=== PATIENT | male | born 1950 | race Caucasian/White ===

== ENCOUNTER → 2016-12-14 | Outpatient (CLI) | payer OTHER ==
[~2016-12-14] MED LIST: AGM875 PO; ASPI81TA28 PO; CMD4 PO; CRS10 PO; GLUCTAB7 PO; METO50TA16 PO; MULT-506 PO; NIAC1TAB59 PO; OMEG10007 PO; OXYC-57 PO
[2016-12-14 09:34] LABS: BASO % 0.6 %; BASO ABS # 0.03 K/uL (0-0.2); COMPLETE YES; EOS % 3.5 %; HEMATOCRIT 49.7 % (42-52); LYMPH % 31.1 %; LYMPH ABS # 1.68 K/uL (1.2-3.4); MEAN CORPUSCULAR HEMOGLOBIN 34.9 pg (25-34); MEAN CORPUSCULAR HGB CONC 35.2 g/dl (32-36); MEAN PLATELET VOLUME 10.2 fL (7.4-10.4); MONO % 11.9 %; NEUT % 52.9 %; PLATELET COUNT 161 K/uL (130-400); RED BLOOD COUNT 5.02 M/uL (4.7-6.1)
[2016-12-14 09:48] LABS: ALT/SGPT 36 U/L (12-78); BLOOD UREA NITROGEN 16 mg/dl (7-18); BUN/CREATININE RATIO 11.7 (10-20); CALCIUM 9.3 mg/dl (8.5-10.1); CARBON DIOXIDE 25 mmol/L (21-32); CHLORIDE 108 mmol/L (98-107); CHOLESTEROL 113 mg/dl (0-200); GLUCOSE 101 mg/dl (70-99); POTASSIUM 4.2 mmol/L (3.5-5.1); SODIUM 139 mmol/L (136-145); TRIGLYCERIDES 111 mg/dl (0-150); VERY LOW DENSITY LIPOPROT CALC 22 mg/dl
[2016-12-14 09:53] LABS: ESTIMATED AVERAGE GLUCOSE 114 mg/dl; HA1C FLAG Normal (Normal)
[2016-12-14 09:57] LABS: ALB/GLOB RATIO 1.1 (0.9-2); ALKALINE PHOSPHATASE 75 U/L (45-117); AST/SGOT 28 U/L (15-37); CHOLESTEROL/HDL RATIO 2.4; HDL CHOLESTEROL 47 mg/dl; LDL CHOLESTEROL CALCULATED 44 mg/dl; RHEUMATOID FACTOR < 10.0 U/mL (0-15); THYROID STIMULATING HORMONE 0.912 uIu/ml (0.300-4.500)
== END | disposition home or self-care (01) ==
LOC: C.LAB 07:57
PROVIDERS: ATTEND Internal Medicine
DX: Z00.00 Encounter for general adult medical examination without abnormal findings (principal); I25.10 Atherosclerotic heart disease of native coronary artery without angina pectoris; R21 Rash and other nonspecific skin eruption; E78.5 Hyperlipidemia, unspecified; I10 Essential (primary) hypertension; M25.50 Pain in unspecified joint; M79.1 Myalgia; R73.01 Impaired fasting glucose

== ENCOUNTER 2017-02-15 23:41 | Emergency (ER) | payer OTHER ==
[~2017-02-15] VITALS: Ht 177.8 cm; Wt 90.0 kg
[~2017-02-15 23:41] MED LIST changes: -ASPI81TA28 PO; -GLUCTAB7 PO
[2017-02-15 23:53] VITALS: TEMP 36.8; Ht 177.8 cm; Wt 90.0 kg
[2017-02-16] MEDS ORDERED: GLUCTAB7 PO (00:24)
[2017-02-16] MEDS ORDERED: ASPI81TA28 PO (00:25)
--- NOTE | 2017-02-16 00:29 | EMERGENCY ROOM VISIT NOTE ---
History Report prepared by Susan: Rosemarie Cheek Under the Supervision of: Dr. Kymberly Mcbride D.O. First contact with patient: 00:03 Chief Complaint: SWELLING TO EXTREMITY Stated Complaint: S.P RT SHOULDER SURGERY, LOWER EXTREMITY SWELLING History of Present Illness The patient is a 66 year old male who presents to the Emergency Room with complaints of sudden swollen feet and calves beginning 2 hours prior to arrival. The patient states that one week ago he had right shoulder surgery, and that he had this same swelling in his feet and calves 2 days after. He denies being on his feet more than usual. The patient states that he takes a baby aspirin, metoprolol, and lisinopril. Pt denies headache, change in vision, fevers, chest pain, shortness of breath, nausea, vomiting, diarrhea, pain with urination, and melena. Source of History: patient Onset: 2 hours prior to arrival Position: foot (bilateral), other (bilateral calves) Quality: other (swelling) Timing: other (sudden) Associated Symptoms: No fevers, No headache, No chest pain, No SOB, No nausea, No vomiting, No melena, No diarrhea, No urinary symptoms Review of Systems See HPI for pertinent positives & negatives. A total of 10 systems reviewed and were otherwise negative. Past Medical & Surgical Medical Problems: (1) Heart disease (2) Varicose vein of leg Family History FHx: cancer Hypertension Social History Smoking Status: Former Smoker Marital Status: single Occupation Status: unemployed Current/Historical Medications Scheduled Aspirin (Aspirin Ec), 81 MG PO DAILY Fish Oil (Dunnegan-3), 1 CAP PO TID Nfnqaiqlxiq-Aofieoaamfd-Rqs C- (Glucosamine Chondroitin), 1 TAB PO DAILY Metoprolol Tartrate (Lopressor) (Lopressor), 75 MG PO BID Multivitamin (Multivitamin), 1 TAB PO DAILY Allergies Coded Allergies: Latex1 -Allergic Contact Dermititis (Verified Allergy, Mild, RASH, 02/16/17 ) Adhesives (Verified Allergy, Unknown, rash, 02/16/17) Physical Exam Vital Signs Date Time Temp Pulse Resp B/P (MAP) Pulse Ox O2 Delivery O2 Flow Rate FiO2 02/16/17 03:19 76 18 133/81 95 02/16/17 01:31 80 20 117/80 98 Room Air 02/15/17 23:53 36.8 77 20 130/79 96 Room Air Physical Exam GENERAL: alert, well appearing, well nourished, no distress, non-toxic EYE EXAM: normal conjunctiva, PERRL and EOM's grossly intact OROPHARYNX: no exudate, no erythema, lips, buccal mucosa, and tongue normal and mucous membranes are moist NECK: supple, no nuchal rigidity, no adenopathy, non-tender LUNGS: Clear to auscultation. Normal chest wall mechanics HEART: no murmurs, S1 normal and S2 normal ABDOMEN: abdomen soft, non-tender, normo-active bowel sounds, no masses, no rebound or guarding. BACK: Back is symmetrical on inspection and there is no deformity, no midline tenderness, no CVA tenderness. SKIN: no rashes and no bruising UPPER EXTREMITIES: upper extremities are grossly normal. Right upper extremity in post-operative protective sling. LOWER EXTREMITIES: 1+ bilateral lower edema. Nml ROM, nml pulses. NEURO EXAM: Normal sensorium, cranial nerves II-XII [grossly] intact, normal speech, no [gross] weakness of arms, no [gross] weakness of legs. Gross sensation intact. Medical Decision & Procedures ER Provider Diagnostic Interpretation: US venous b/l lower extremities: No deep venous thrombosis identified in either lower extremity. Slow flow reportedly noted in the left popliteal vein, but the vein compresses normally. Pulsatile venous waveform noted in both common femoral veins. This may indicate elevated right heart pressures/right heart failure. Radiologist: Jorge A Salamanca M.D. Laboratory Results 02/16/17 00:45 Red Blood Count 4.71, Mean Corpuscular Volume 95.1, Mean Corpuscular Hemoglobin 32.5, Mean Corpuscular Hemoglobin Concent 34.2, Mean Platelet Volume 9.4, Neutrophils (%) (Auto) 51.9, Lymphocytes (%) (Auto) 32.5, Monocytes (%) (Auto) 9.3, Eosinophils (%) (Auto) 5.5, Basophils (%) (Auto) 0.6, Neutrophils # (Auto) 2.64, Lymphocytes # (Auto) 1.65, Monocytes # (Auto) 0.47, Eosinophils # (Auto) 0.28, Basophils # (Auto) 0.03 02/16/17 00:45 Test 02/16/17 00:45 02/16/17 00:54 White Blood Count 5.08 K/uL (4.8-10.8) Red Blood Count 4.71 M/uL (4.7-6.1) Hemoglobin 15.3 g/dL (14.0-18.0) Hematocrit 44.8 % (42-52) Mean Corpuscular Volume 95.1 fL (80-100) Mean Corpuscular Hemoglobin 32.5 pg (25-34) Mean Corpuscular Hemoglobin Concent 34.2 g/dl (32-36) Platelet Count 209 K/uL (130-400) Mean Platelet Volume 9.4 fL (7.4-10.4) Neutrophils (%) (Auto) 51.9 % Lymphocytes (%) (Auto) 32.5 % Monocytes (%) (Auto) 9.3 % Eosinophils (%) (Auto) 5.5 % Basophils (%) (Auto) 0.6 % Neutrophils # (Auto) 2.64 K/uL (1.4-6.5) Lymphocytes # (Auto) 1.65 K/uL (1.2-3.4) Monocytes # (Auto) 0.47 K/uL (0.11-0.59) Eosinophils # (Auto) 0.28 K/uL (0-0.5) Basophils # (Auto) 0.03 K/uL (0-0.2) RDW Standard Deviation 39.1 fL (36.4-46.3) RDW Coefficient of Variation 11.2 % (11.5-14.5) Immature Granulocyte % (Auto) 0.2 % Immature Granulocyte # (Auto) 0.01 K/uL (0.00-0.02) Prothrombin Time 10.7 SECONDS (9.0-12.0) Prothromb Time International Ratio 1.0 (0.9-1.1) Anion Gap 5.0 mmol/L (3-11) Est Creatinine Clear Calc Drug Dose 64.8 ml/min Estimated GFR () 66.8 Estimated GFR (Non- 57.7 BUN/Creatinine Ratio 16.8 (10-20) Calcium Level 9.9 mg/dl (8.5-10.1) Magnesium Level 2.4 mg/dl (1.8-2.4) Total Bilirubin 0.4 mg/dl (0.2-1) Aspartate Amino Transf (AST/SGOT) 33 U/L (15-37) Alanine Aminotransferase (ALT/SGPT) 29 U/L (12-78) Alkaline Phosphatase 79 U/L (45-117) Pro-B-Type Natriuretic Peptide 168 pg/ml (0-900) Total Protein 7.3 gm/dl (6.4-8.2) Albumin 3.7 gm/dl (3.4-5.0) Globulin 3.6 gm/dl (2.5-4.0) Albumin/Globulin Ratio 1.0 (0.9-2) Bedside D-Dimer > 450 ng/mlFEU (0-450) Laboratory results per my review. ECG Indication: other (edema) Rate (beats per minute): 73 Rhythm: sinus rhythm Findings: RBBB (appeance of incomplete RBBB in V2), no acute ischemic change, other (normal to rightward axis, normal intervals, baseline artifact) ED Course 55126: The patient was evaluated in room B7. A complete history and physical exam was performed. 0256: Pt updated on results. Medical Decision Differential diagnosis: Etiologies such as DVT, musculoskeletal, infection, joint effusion, trauma, lymphedema, idiopathic, CHF, as well as others were entertained.. Dimer likely still elevated due to recent surgery. no evidence of dvt, no evidence of joint effusion, doubt septic arthritis, doubt CHF, no evidence of cellulitis. Discussed possible ddx with sx, elevation of legs, sx to watch/ return for, he verbalized understanding and was agreeable with plan. No sx to suggest PE. Medication Reconcilliation Current Medication List: was personally reviewed by me Blood Pressure Screening Patient's blood pressure: Normal blood pressure Impression Primary Impression: Swelling of both lower extremities Scribe Attestation The scribe's documentation has been prepared under my direction and personally reviewed by me in its entirety. I confirm that the note above accurately reflects all work, treatment, procedures, and medical decision making performed by me. Departure Information Dispostion Home / Self-Care Referrals Zeenat Murillo M.D. (PCP) Patient Instructions My [facility] Additional Instructions Please continue your post-op instructions as given to you by your surgeon. Please elevate your legs when at rest and avoid any added salt in your diet. You may consider compression stockings to help minimize swelling in your legs also. If you have any increased swelling, develop fevers, rash/sores, chest pain/pressure, trouble breathing, cough, dizziness, vomiting, or you have any other new or concerning symptoms, please return to the emergency room. Please continue your regular medications as prescribed.
[2017-02-16 01:14] LABS: BASO % 0.6 %; BASO ABS # 0.03 K/uL (0-0.2); COMPLETE YES; EOS % 5.5 %; HEMATOCRIT 44.8 % (42-52); IG% 0.2 %; LYMPH % 32.5 %; LYMPH ABS # 1.65 K/uL (1.2-3.4); MEAN CELL VOLUME 95.1 fL (80-100); MEAN CORPUSCULAR HEMOGLOBIN 32.5 pg (25-34); MEAN CORPUSCULAR HGB CONC 34.2 g/dl (32-36); MEAN PLATELET VOLUME 9.4 fL (7.4-10.4); MONO % 9.3 %; NEUT % 51.9 %; PLATELET COUNT 209 K/uL (130-400); RED BLOOD COUNT 4.71 M/uL (4.7-6.1); WHITE BLOOD COUNT 5.08 K/uL (4.8-10.8)
[2017-02-16 01:27] LABS: PROTHROMBIN TIME (PATIENT) 10.7 SECONDS (9.0-12.0)
[2017-02-16 01:34] LABS: BUN/CREATININE RATIO 16.8 (10-20); CALCIUM 9.9 mg/dl (8.5-10.1); CREATININE 1.3 mg/dl (0.60-1.40); MAGNESIUM 2.4 mg/dl (1.8-2.4); POTASSIUM 3.9 mmol/L (3.5-5.1)
[2017-02-16 03:19] VITALS: BP 133/81; PULSE 76; O2SAT 95
--- NOTE | 2017-02-16 06:51 | DIAGNOSTIC IMAGING REPORT ---
BILATERAL LOWER EXTREMITY VENOUS DOPPLER HISTORY: Acute bilateral lower extremity edema le edema COMPARISON STUDY: Duplex study 09/15/2010. FINDINGS: There is normal compressibility, flow, and augmentation within the bilateral lower extremity deep venous systems. Slow flow is incidentally noted within the left popliteal vein. Pulsatile venous waveforms are noted within the bilateral common femoral veins. IMPRESSION: 1. No sonographic evidence of deep venous thrombosis within the right or left lower extremity. 2. Pulsatile venous waveforms are present within the bilateral common femoral veins. This could possibly be caused by elevated right heart pressure. Electronically signed by: Salvatore Pacheco M.D. 02/16/2017 6:50 AM Dictated Date/Time: 02/16/2017 6:46 AM
== END 2017-02-16 03:19 | disposition home or self-care (01) ==
LOC: C.EDB 23:42
DX: R60.0 Localized edema (principal); I83.90 Asymptomatic varicose veins of unspecified lower extremity; I45.10 Unspecified right bundle-branch block; Z79.82 Long term (current) use of aspirin

== ENCOUNTER → 2017-08-07 | Outpatient (CLI) | payer OTHER ==
[~2017-08-07] MED LIST changes: -AGM875 PO; +ASPI81TA28 PO; -CMD4 PO; -CRS10 PO; +GLUCTAB7 PO; -NIAC1TAB59 PO; -OXYC-57 PO
== END | disposition home or self-care (01) ==
LOC: C.LABSPEC 07:36
PROVIDERS: ATTEND Physician Assistant Medical
DX: R19.7 Diarrhea, unspecified (principal)

== ENCOUNTER → 2017-12-18 | Outpatient (CLI) | payer OTHER ==
[2017-12-18 12:46] LABS: HEMOGLOBIN A1C 5.8 % (4.5-5.6)
[2017-12-18 12:49] LABS: ALKALINE PHOSPHATASE 78 U/L (45-117); ALT/SGPT 38 U/L (12-78); AST/SGOT 28 U/L (15-37); BLOOD UREA NITROGEN 21 mg/dl (7-18); CARBON DIOXIDE 22 mmol/L (21-32); CHOLESTEROL 102 mg/dl (0-200); CREATININE 1.38 mg/dl (0.60-1.40); GLUCOSE 100 mg/dl (70-99); LDL CHOLESTEROL CALCULATED 30 mg/dl; POTASSIUM 4.1 mmol/L (3.5-5.1); SODIUM 138 mmol/L (136-145); TOTAL PROTEIN 7.5 gm/dl (6.4-8.2)
== END | disposition home or self-care (01) ==
LOC: C.LABBFT 08:23
PROVIDERS: ATTEND Internal Medicine
DX: Z00.00 Encounter for general adult medical examination without abnormal findings (principal); I10 Essential (primary) hypertension; E78.5 Hyperlipidemia, unspecified; R73.01 Impaired fasting glucose; Z11.59 Encounter for screening for other viral diseases; Z12.5 Encounter for screening for malignant neoplasm of prostate

== ENCOUNTER 2023-08-07 19:43 | Inpatient (IN) ==
[2023-08-07 20:23] LABS: Basophils # (auto) 0.04 K/uL (0.00-0.20); Basophils % (auto) 0.6 %; Eosinophils # (auto) 0.13 K/uL (0.00-0.50); Hematocrit (blood only) 50.2 % (42.0-52.0); Hemoglobin 17.2 g/dl (14.0-18.0); Immature Granulocytes # (auto) 0.01 K/uL (0.01-0.20); Immature Granulocytes % (auto) 0.2 %; Lymphocytes % (auto) 29.2 %; Mean Corpuscular Hemoglobin 32.8 pg (25.0-34.0); Mean Corpuscular Hgb Conc 34.3 g/dL (32.0-36.0); Mean Corpuscular Volume 95.6 fL (80.0-100.0); Mean Platelet Volume 9.8 fL (9.4-12.4); Monocytes # (auto) 0.81 K/uL (0.11-0.59); Monocytes % (auto) 12.4 %; Neutrophils # (auto) 3.62 K/uL (1.40-6.50); Neutrophils % (auto) 55.6 %; Platelet Count 169 K/uL (130-400); RDW Coefficient of Variation 11.6 % (11.5-14.5); RDW Standard Deviation 40.3 fL (36.4-46.3); Red Blood Count 5.25 M/uL (4.70-6.10); White Blood Count 6.51 K/ul (4.8-10.8)
[2023-08-07 20:37] LABS: Albumin Globulin Ratio 1.6 (0.9-2); Albumin Level 4.8 gm/dl (3.4-5.0); BUN Creatinine Ratio 13.7 (10-20); Bilirubin,Total 0.8 mg/dl (0.2-1.0); Calcium 10.2 mg/dl (8.6-10.3); Creatinine Clr Calc Pharmacy 46.3 ml/min; Est GFR (Non-African American) 40.5 ml/min; Potassium 4.1 mmol/L (3.5-5.1); Total Protein 7.8 gm/dl (6.0-8.3)
[2023-08-07 20:51] LABS: Troponin I High Sensitivity 183.4 pg/ml (0-20)
--- NOTE | 2023-08-07 21:11 | Emergency Department Note ---
History of Present Illness General Chief complaint: Chest Pain Stated complaint: CHEST PAIN, HISTORY/HEART SURGERY Time Seen by Provider: 08/07/23 21:03 History of Present Illness 72-year-old male presents emergency department with intermittent chest pain that started at 9 AM this morning. Patient of note has a coronary artery bypass grafting x 2 at [facility] in 2010. Patient states that the pain is midsternal chest pain, nonradiating, no associated shortness of breath jaw pain arm pain back pain. No diaphoresis. Patient did take aspirin prior to arrival. Patient states that the pain was intermittent and then returned at 3 PM today. Patient did take nitro x 2 and states that the chest pain abated. Patient now states no current chest pain. There are no other mitigating or alleviating factors Home Medications Medication Instructions Recorded Confirmed Type aspirin 81 mg tablet,delayed 81 mg PO DAILY 07/26/18 08/07/23 History release hbkybbanncv-seclcygjo-zkx C-Mn 1 cap PO DAILY 07/26/18 08/07/23 History capsule multivitamin 1 tab PO DAILY 07/26/18 08/07/23 History omega 3 350 mg-dha 235 mg-epa 90 1 cap PO DAILY 07/26/18 08/07/23 History mg-fish oil 597 mg capsule,delay rel (Warren-3) metoprolol succinate 50 mg 50 mg PO DAILY #90 tabs 02/19/23 08/07/23 Rx tablet,extended release 24 hr omeprazole 20 mg capsule,delayed 20 mg PO DAILY #90 caps 04/30/23 08/07/23 Rx release rosuvastatin 10 mg tablet 10 mg PO DAILY #90 tabs 05/21/23 08/07/23 Rx meloxicam 7.5 mg tablet 7.5 mg PO DAILY PRN pain #90 tabs 06/08/23 08/07/23 Rx nitroglycerin 0.4 mg sublingual 0.4 mg sublingual Q5M PRN chest 08/07/23 08/07/23 Rx tablet pain #25 tabs Allergies Allergy/AdvReac Type Severity Reaction Status Date / Time adhesive Allergy Intermediate rash Verified 08/07/23 21:48 latex Allergy Intermediate RASH Verified 08/07/23 21:48 Past Med/Surg History Medical History (Updated 08/07/23 @ 21:14 by Constantin Almaraz DO) Mitral regurgitation Polycythemia Monoclonal gammopathy of unknown significance (MGUS) Osteoarthritis, multiple sites Impaired fasting glucose Hypertension Hyperlipidemia CAD (coronary artery disease) s/p CABG Varicose vein of leg Surgical History History of repair of rotator cuff History of coronary artery bypass graft CABG x 2 in 2010 Family History Father Metastatic melanoma Mother Breast cancer Denies family history of Ovarian cancer Prostate cancer Myocardial infarction Colorectal cancer Social History Smoking Status: Never smoker Tobacco Type: Cigarettes Age Started Using Tobacco: 20; Age Quit Using Tobacco: 56; packs per day: 1; Cigarettes Per Day: 20; Second Hand Exposure: No; Do You Dip or Chew Tobacco: No; Hx Alcohol Use: Yes Alcohol type: beer Alcohol Intake Frequency: 4 or More x per/Week Alcohol Intake Frequency Comment: 1-2 beers per day Hx Substance Use: No Preferred Language: Slovenian Visual Impairment: No Limitations Hearing Ability: Normal marital status: single Current Living Situation: Alone current occupational status: retired current occupation: worked at [employer] Feels Safe at Home: Yes Childhood Exposure to Second-Hand Smoke: Yes Diet: regular Dental Care, Regularly: Yes Physical Activity Frequency: 1-2 Times per Week Seatbelt Use: always Sunscreen Use: Yes Assistive Devices: None Review of Systems A total of 10 systems reviewed and were otherwise negative Cardiovascular: + chest pain Physical Exam Vital Signs Vital Signs - 24 hr 08/07/23 19:47 08/07/23 21:10 08/07/23 21:11 Temperature 36.3 C L Temperature Source Temporal Artery Scan Pulse Rate 75 87 Pulse Rate from SpO2 Sensor Respiratory Rate 18 18 Respiratory Effort / Characteristics Non-Labored Spontaneous Respiratory Depth Normal Blood Pressure 156/87 H 156/88 H Blood Pressure Mean 110 106 Pulse Oximetry 95 Oxygen Delivery Method Room Air Sepsis Recent Fever Within 48 Hours No Sepsis New/Unexplained Change in Mental Status No Sepsis Action Taken by Nursing No Action Required 08/07/23 21:11 08/07/23 21:12 08/07/23 21:30 Temperature Temperature Source Pulse Rate 77 70 85 Pulse Rate from SpO2 Sensor 73 69 Respiratory Rate 18 19 Respiratory Effort / Characteristics Respiratory Depth Blood Pressure Blood Pressure Mean Pulse Oximetry 96 95 Oxygen Delivery Method Sepsis Recent Fever Within 48 Hours Sepsis New/Unexplained Change in Mental Status Sepsis Action Taken by Nursing 08/07/23 21:30 Temperature Temperature Source Pulse Rate Pulse Rate from SpO2 Sensor Respiratory Rate Respiratory Effort / Characteristics Respiratory Depth Blood Pressure 149/98 H Blood Pressure Mean 120 Pulse Oximetry Oxygen Delivery Method Sepsis Recent Fever Within 48 Hours Sepsis New/Unexplained Change in Mental Status Sepsis Action Taken by Nursing GENERAL: Patient is awake alert in no acute distress patient is resting comfortably and showing no signs of anxiety EYES: The conjunctivae are clear. The pupils are round and reactive. EARS, NOSE, MOUTH AND THROAT: The nose is without any evidence of any deformity. Mucous membranes are moist. Tongue is midline. NECK: The neck is nontender and supple. RESPIRATORY: Normal respiratory effort is noted there is no evidence of wheezing rhonchi or rales CARDIOVASCULAR: Regular rate and rhythm noted there no murmurs rubs or gallops normal S1 normal S2. GASTROINTESTINAL: The abdomen is soft. Abdomen is nontender. BACK: No midline tenderness or or step-off noted range of motion in flexion extension as well as rotation no signs of muscle spasm noted MUSCULOSKELETAL/EXTREMITIES: There is no evidence of gross deformity full range of motion is noted in the hips and shoulders. SKIN: There is no obvious evidence of any rash. There are no petechiae, pallor or cyanosis noted. NEUROLOGIC: Patient is awake alert and oriented x3 strength is symmetric Course Reevaluation(s) Reevaluation #1: Patient is resting in no distress on repeat examination. Patient has no current chest pain. Patient has taken aspirin prior to arrival. Time: 21:21 Consultations Consultation #1: Case discussed with Dr. Lovett from [facility] for admission Time: 21:21 Critical Care Time Critical Care Time: Yes Total Critical Care Time: 40 I have personally spent greater than 40 minutes of critical care time in the direct management of this patient. This includes bedside care, interpretation of diagnostic studies, and testing, discussion with consultants, patient, and family members, and other required patient management activities. These minutes are in excess of all separately billable procedures. Medical Decision Making Medical Records Attestation: I reviewed the patient's medical records. Home Medications Current Medication List: was personally reviewed by me Laboratory Data Attestation: I reviewed the patient's lab results. Labs interpreted by me elevated troponin, mildly elevated creatinine 08/07/23 19:54 08/07/23 19:54 Lab Results 08/07/23 08/07/23 Range/Units 19:54 21:30 WBC 6.51 (4.8-10.8) K/ul RBC 5.25 (4.70-6.10) M/uL Hgb 17.2 (14.0-18.0) g/dl Hct 50.2 (42.0-52.0) % MCV 95.6 (80.0-100.0) fL MCH 32.8 (25.0-34.0) pg MCHC 34.3 (32.0-36.0) g/dL RDW Std Deviation 40.3 (36.4-46.3) fL RDW Coeff of Jenn 11.6 (11.5-14.5) % Plt Count 169 (130-400) K/uL MPV 9.8 (9.4-12.4) fL Immature Gran % (Auto) 0.2 % Neut % (Auto) 55.6 % Lymph % (Auto) 29.2 % Dukes % (Auto) 12.4 % Eos % (Auto) 2.0 % Baso % (Auto) 0.6 % Neut # (Auto) 3.62 (1.40-6.50) K/uL Lymph # (Auto) 1.90 (1.20-3.40) K/uL Dukes # (Auto) 0.81 H (0.11-0.59) K/uL Eos # (Auto) 0.13 (0.00-0.50) K/uL Baso # (Auto) 0.04 (0.00-0.20) K/uL Immature Gran # (Auto) 0.01 (0.01-0.20) K/uL Sodium 138 (136-145) mmol/L Potassium 4.1 (3.5-5.1) mmol/L Chloride 103 (98-107) mmol/L Carbon Dioxide 26 (21-32) mmol/L Anion Gap 9 (3-11) BUN 23 (6-23) mg/dl Creatinine 1.68 H (0.6-1.4) mg/dl Est Cr Clr Drug Dosing 46.3 ml/min Est GFR ( Amer) 47.0 ml/min Est GFR (Non-Af Amer) 40.5 ml/min BUN/Creatinine Ratio 13.7 (10-20) Glucose 95 (70-99(Fasting)) mg/dl Calcium 10.2 (8.6-10.3) mg/dl Total Bilirubin 0.8 (0.2-1.0) mg/dl AST 27 (13-39) U/L ALT 21 (7-52) U/L Alkaline Phosphatase 66 (34-104) U/L Troponin I High Sens 183.4 H* 168.4 H* (0-20) pg/ml Total Protein 7.8 (6.0-8.3) gm/dl Albumin 4.8 (3.4-5.0) gm/dl Globulin 3.0 (2.5-4.0) gm/dl Albumin/Globulin Ratio 1.6 (0.9-2) Lipase 36 (11-82) U/L Imaging Data Attestation: I personally reviewed and interpreted this imaging study as follows: My Impression: Chest x-ray interpreted by me negative for infiltrate normal mediastinum ECG Data Attestation: I personally reviewed and interpreted this ECG as follows: Additional Comments: EKG interpreted by me normal sinus rhythm rate of 74, left axis deviation, incomplete right bundle branch block, no obvious ST segment elevation or depression MDM Narrative Medical decision making differential diagnosis includes angina, unstable angina, acute coronary syndrome, acute IA, musculoskeletal chest pain, costochondritis I doubt that the patient has thoracic aortic dissection or pulmonary embolism Patient's heart score is a 5 Patient was given aspirin prior to arrival Patient will be admitted to the [facility] for NSTEMI Impression & Plan Acute non-ST elevation myocardial infarction (NSTEMI) Discharge Plan Visit Data Chief Complaint: Chest Pain Stated Complaint: CHEST PAIN, HISTORY/HEART SURGERY ED Provider: Constantin Almaraz Discharge Problem: Acute non-ST elevation myocardial infarction (NSTEMI) Patient Disposition: Admitted As Inpatient Forms Stand Alone Forms: My [facility] Prescriptions Prescriptions: No Action metoprolol succinate 50 mg tablet extended release 24 hr 50 mg PO DAILY Qty: 90 3RF omeprazole 20 mg capsule,delayed release(DR/EC) 20 mg PO DAILY Qty: 90 3RF rosuvastatin 10 mg tablet 10 mg PO DAILY Qty: 90 3RF nitroglycerin 0.4 mg tablet, sublingual 0.4 mg SL Q5M MDD 3 PRN (Reason: chest pain) Qty: 25 2RF meloxicam 7.5 mg tablet 7.5 mg PO DAILY PRN (Reason: pain) Qty: 90 3RF multivitamin Tablet 1 tab PO DAILY ryzyogrhoac-cypbdskfc-adl C-Mn Capsule 1 cap PO DAILY aspirin 81 mg Tablet,Delayed Release (Dr/Ec) 81 mg PO DAILY Warren-3 350 mg-235 mg- 90 mg-597 mg Capsule,Delayed Release(Dr/Ec) 1 cap PO DAILY Referrals Referrals: Zeenat Murillo MD [Primary Care Provider] -
[2023-08-07] MEDS ORDERED: MoRPHine SULFATE 2 MG/ML CARP IV PRN (22:08)
--- NOTE | 2023-08-07 22:32 | History & Physical Report ---
Date of Service August 07, 2023 Assessment & Plan (1) Acute non-ST elevation myocardial infarction (NSTEMI): Plan: Patient is a 72-year-old male with a past medical history of CAD, previous bypass in 2010 done at [facility], hyperlipidemia, hypertension, previous [id number]-etgz smoking history and quit in 2007, and impaired fasting glucose who presents to the hospital for concern of chest pain. Patient with typical chest pain that was relieved with nitroglycerin and with elevated troponin at 180 indicative of NSTEMI, patient to be admitted for serial enzymes and cardiac consultation. -Admit to telemetry, telemetry indication being acute NSTEMI -Cardiac consultation ordered, appreciate recommendations -N.p.o. after midnight, suspect need for cardiac catheterization -Echocardiogram for in morning -INDY score of 6 putting him at 41% risk at 14 days of all cause mortality, new or recurrent CO, or severe ischemia -Heparin bolus and drip started per standard protocol -Continue daily aspirin -Morphine as needed for chest pain that is resistant to nitrates -EKG as needed for chest pain -Morning EKG ordered -Continue rosuvastatin, beta-blockade -O2 saturation goal of 90%, supplement O2 if less (2) CAD (coronary artery disease): Plan: - As above -Previous CABG done in 2010 at [facility] (3) Hyperlipidemia: Plan: -Continue rosuvastatin 10 mg daily, consider increasing to 20 mg (4) Hypertension: Plan: -Continue beta-blockade Plan Disposition: Admit to telemetry for NSTEMI and possible catheterization Diet: Heart healthy, n.p.o. after midnight with LR at 100 cc/h DVT prophylaxis: Heparin CODE STATUS: Full code as discussed with patient History of Present Illness Chief Complaint: Chest pain Primary Care Provider: Zeenat Murillo MD Patient is a 72-year-old male with a past medical history of CAD, previous bypass in 2010 done at [facility], hyperlipidemia, hypertension, previous 70-yajy-kgvp smoking history and quit in 2007, and impaired fasting glucose who presents to the hospital for concern of chest pain. It seems patient had setting of chest pain that began at 6:00 the morning of 08/07/2023. Stated at the time that it was midline and nonradiating without shortness of tyree ath or radiation to the jaw. It went away without intervention initially. He stated later in the day he called his arborist office and they stated if his chest pain were to return, he were to go to the emergency room for evaluation. Unfortunately, his chest pain did return and he took nitroglycerin for his first time ever and it did make his symptoms go away within minutes of taking it. Wh en this episode occurred which was at approximately 3 PM, he did take aspirin as well and decided to come to the emergency room by private vehicle. Patient states that he has never had a heart attack before. No nausea or vomiting. Currently patient is without chest pain. No other complaints at this time ED course: Patient evaluated by provider. Labs are significant for are significant for creatinine of 1.68, and initial troponin of greater than 180 with a second one pending. EKG demonstrating incomplete right bundle branch block which is not new. No territorial evidence of ischemia. No ST elevation. Chest x-ray without acute abnormality noted. The hospitalist service was consulted for admission for concern for NSTEMI. Allergies Allergy/AdvReac Type Severity Reaction Status Date / Time adhesive Allergy Intermediate rash Verified 08/07/23 21:48 latex Allergy Intermediate RASH Verified 08/07/23 21:48 Home Medications Medication Instructions Recorded Confirmed Type aspirin 81 mg tablet,delayed 81 mg PO DAILY 07/26/18 08/07/23 History release stfrdfibcdp-leryvomgp-rfr C-Mn 1 cap PO DAILY 07/26/18 08/07/23 History capsule multivitamin 1 tab PO DAILY 07/26/18 08/07/23 History omega 3 350 mg-dha 235 mg-epa 90 1 cap PO DAILY 07/26/18 08/07/23 History mg-fish oil 597 mg capsule,delay rel ([place]-3) metoprolol succinate 50 mg 50 mg PO DAILY #90 tabs 02/19/23 08/07/23 Rx tablet,extended release 24 hr omeprazole 20 mg capsule,delayed 20 mg PO DAILY #90 caps 04/30/23 08/07/23 Rx release rosuvastatin 10 mg tablet 10 mg PO DAILY #90 tabs 05/21/23 08/07/23 Rx meloxicam 7.5 mg tablet 7.5 mg PO DAILY PRN pain #90 tabs 06/08/23 08/07/23 Rx nitroglycerin 0.4 mg sublingual 0.4 mg sublingual Q5M PRN chest 08/07/23 08/07/23 Rx tablet pain #25 tabs Past Med/Surg History Medical History (Updated 08/07/23 @ 21:14 by Constantin Almaraz DO) Mitral regurgitation Polycythemia Monoclonal gammopathy of unknown significance (MGUS) Osteoarthritis, multiple sites Impaired fasting glucose Hypertension Hyperlipidemia CAD (coronary artery disease) s/p CABG Varicose vein of leg Surgical History History of repair of rotator cuff History of coronary artery bypass graft CABG x 2 in 2011 Family History Father Metastatic melanoma Mother Breast cancer Denies family history of Ovarian cancer Prostate cancer Myocardial infarction Colorectal cancer Social History Smoking Status: Never smoker Tobacco Type: Cigarettes Age Started Using Tobacco: 20; Age Quit Using Tobacco: 56; packs per day: 1; Cigarettes Per Day: 20; Second Hand Exposure: No; Do You Dip or Chew Tobacco: No; Hx Alcohol Use: Yes Alcohol type: beer Alcohol Intake Frequency: 4 or More x per/Week Alcohol Intake Frequency Comment: 1-2 beers per day Hx Substance Use: No Preferred Language: Liberian Visual Impairment: No Limitations Hearing Ability: Normal Claims Support Specialist Required: No Beliefs That Will Affect Care: None marital status: single Current Living Situation: Alone current occupational status: retired current occupation: worked at [employer] Other Information That Helps Us Care for You: No Feels Safe at Home: Yes Safety Concerns: Feels Safe At This Time Childhood Exposure to Second-Hand Smoke: Yes Diet: regular Dental Care, Regularly: Yes Physical Activity Frequency: 1-2 Times per Week Seatbelt Use: always Sunscreen Use: Yes Assistive Devices: None Review of Systems Review of Systems: All systems reviewed & are unremarkable except as noted in HPI & below Physical Exam Constitutional: WD/WN, vitals as above Eyes: + anicteric sclerae Neck: trachea midline, no thyromegaly Respiratory: normal respiratory effort, lungs clear to auscultation Cardiovascular: Rate/Rhythm: regular rate and regular rhythm Heart Sounds: + murmur (2/6 systolic murmur noted) Vessels: no JVD Extremities: no edema Gastrointestinal (Abdomen): normal bowel sounds, soft, nontender, no hepatosplenomegaly Musculoskeletal: Head/Neck/Chest: normocephalic and head atraumatic Skin: no rashes, warm and dry Neurologic: moves all extremities Psychiatric: A+Ox3, euthymic affect Results & Data Results & Data Vital Signs (Past 12 Hours) Vital Signs Temp Pulse Resp BP Pulse Ox O2 Del Method 08/07/23 21:30 149/98 H 08/07/23 21:30 85 19 95 08/07/23 21:12 70 08/07/23 21:11 77 18 96 08/07/23 21:11 156/88 H 08/07/23 21:10 87 18 08/07/23 19:47 36.3 C L 75 18 156/87 H 95 Room Air Supervising Physician Co-Signing Physician Notes Patient seen and examined, chart reviewed, case discussed with Dr. Crocker and I agree with the assessment and plan as above
[2023-08-07] MEDS: HEPARIN SOD (PORCINE) 1000 UNIT/ML IV ONE (22:50)
[2023-08-07] MEDS: HEPARIN SODIUM/DEXTROSE 25,000 UNITS/500 ML BAG IV SCH (22:51)
[2023-08-07 23:17] LABS: Partial Thromboplastin Time 28 Seconds (21-31); Prothrombin Time 11.4 Seconds (9.0-12.0)
[2023-08-07] MEDS: Heparin IV Adult Wt-Based Standard w/ INITIAL Bolus Protocol IV STA (23:58)
[2023-08-08] MEDS ORDERED: NITROGLYCERIN SL 0.4 MG/TAB TAB SL PRN (00:50)
[2023-08-08] MEDS: LACTATED RINGER'S 1,000 ML IV SCH (01:30)
[2023-08-08 04:26] LABS: Hematocrit (blood only) 46.1 % (42.0-52.0); Hemoglobin 16.4 g/dl (14.0-18.0); Mean Corpuscular Hemoglobin 33.6 pg (25.0-34.0); Mean Corpuscular Hgb Conc 35.6 g/dL (32.0-36.0); Mean Corpuscular Volume 94.5 fL (80.0-100.0); Mean Platelet Volume 9.9 fL (9.4-12.4); Platelet Count 156 K/uL (130-400); RDW Coefficient of Variation 11.6 % (11.5-14.5); RDW Standard Deviation 39.9 fL (36.4-46.3); Red Blood Count 4.88 M/uL (4.70-6.10); White Blood Count 6.32 K/ul (4.8-10.8)
[2023-08-08 04:30] LABS: BUN Creatinine Ratio 14.7 (10-20); Calcium 9.4 mg/dl (8.6-10.3); Creatinine Clr Calc Pharmacy 54.4 ml/min; Est GFR (African American) 57.1 ml/min; Est GFR (Non-African American) 49.3 ml/min
--- NOTE | 2023-08-08 06:08 | Billing Data ---
Date of Service August 07, 2023 Coding Level of Care Code 27264 INT INP/OBS CARE
[2023-08-08 06:54] LABS: ANTI-Xa, UFH(UnfractionatedHep 0.93 IU/ml (0.3-0.7)
--- NOTE | 2023-08-08 07:02 | XRay Report ---
SINGLE VIEW CHEST CLINICAL HISTORY: Atypical chest pain. FINDINGS: A PA chest radiograph is compared to study dated 03/15/2020. The patient is status post midl ine sternotomy. The cardiomediastinal silhouette is unremarkable noting atherosclerotic calcification of the thoracic aorta. Chronic interstitial thickening is similar to previous. The lungs and pleural spaces are clear. No pneumothorax is seen. The skeletal structures are osteopenic. The bony thorax i s grossly intact. IMPRESSION: No active disease in the chest. ACT 112: Negative or not required by law. Electronically signed by: Cobly Hernández M.D. 08/08/2023 7:01 AM
[2023-08-08] MEDS: PANTOprazole 40 MG TAB PO SCH (08:47)
[2023-08-08] MEDS: ASPIRIN 81 MG ECTAB PO SCH (08:47)
[2023-08-08] MEDS: METOPROLOL SUCC 50MG EXT REL TAB PO SCH (08:47)
[2023-08-08] MEDS: ROSUVASTATIN CALCIUM 10 MG TAB PO SCH (08:48)
--- NOTE | 2023-08-08 12:30 | Pre Anesthesia Assessment ---
Date of Service August 08, 2023 Pre Sedation Assessment Vital Signs Temp Pulse Pulse Pulse Resp BP BP 08/08/23 12:06 85 15 138/85 08/08/23 11:14 98.3 F 72 20 138/79 08/08/23 08:55 98.2 F 66 14 134/76 08/08/23 00:55 62 08/08/23 00:50 97.9 F 63 16 143/81 H 08/08/23 00:33 97.9 F 62 16 143/80 H 08/08/23 00:04 65 17 133/74 08/07/23 23:30 67 15 130/79 08/07/23 23:00 62 17 135/78 08/07/23 22:30 63 16 08/07/23 22:30 128/75 08/07/23 22:00 68 14 08/07/23 22:00 143/91 H 08/07/23 21:30 149/98 H 08/07/23 21:30 85 19 08/07/23 21:12 70 08/07/23 21:11 77 18 08/07/23 21:11 156/88 H 08/07/23 21:10 87 18 08/07/23 19:47 97.3 F L 75 18 156/87 H Pulse Ox O2 Del Method 08/08/23 12:06 95 Room Air 08/08/23 11:14 94 Room Air 08/08/23 08:55 97 Room Air 08/08/23 00:55 08/08/23 00:50 94 Room Air 08/08/23 00:33 94 Room Air 08/08/23 00:04 93 Room Air 08/07/23 23:30 95 08/07/23 23:00 93 08/07/23 22:30 92 08/07/23 22:30 08/07/23 22:00 96 08/07/23 22:00 08/07/23 21:30 08/07/23 21:30 95 08/07/23 21:12 08/07/23 21:11 96 08/07/23 21:11 08/07/23 21:10 08/07/23 19:47 95 Room Air Cardiovascular + regular rate Respiratory + respiratory effort normal Pre-Sedation Airway Assessment Smoking Status: Never smoker Hx Sleep Apnea: No Hx Difficult Intubation: No Short, Thick Neck: No Thyromental Distance: > or= 3.5 Finger Breadths Oral Cavity: + WNL Mallampati Class: III ASA: ASA3 NPO Status Date of Last Intake of Fluids: 08/08/23 Time of Last Intake of Fluids: 08:00 Date of Last Intake of Solid Food: 08/07/23 Time of Last Intake of Solid Foods: 17:00 Procedure Planning Contraindications for Sedation: none Current Medications Reviewed: Yes Notes The planned sedation has been discussed with the patient. Informed Consent was obtained. I have identified the patient, determined the appropriateness of sedation and have assessed the patient immediately prior to the procedure. All medicine(s) and interventions are by my order.
--- NOTE | 2023-08-08 12:33 | Cardiology Consultation ---
Date of Consultation August 08, 2023 Assessment & Plan (1) Acute non-ST elevation myocardial infarction (NSTEMI): Presentation consistent with ACS and recommend proceeding with cardiac catheterization and possible PCI. No apparent contraindications to procedure. Discussed risks, benefits, alternatives of procedure with patient and he is willing to proceed. Plan on cardiac cath via LT radial artery later this morning. Continue heparin drip until called for procedure. Please keep NPO. Further recommendations pending findings of coronary angiography. History of Present Illness Attending Physician: Joaquín Rodriguez MD History of Present Illness Mr. Damian is a very pleasant 72-year-old gentleman with a history significant for multivessel CAD status post CABG x 2, dyslipidemia, MGUS, secondary polycythemia (has undergone therapeutic phlebotomy started on 10/24/2021), postoperative DVT, and CKD. Yesterday morning developed acute onset central chest pain. Pain partially relieved with SLNTG. Later had recurrent chest pain and presented to ED. ECG without ST changes. HsTrop 183 and downtrending. Echo this morning shows preserved LV function with no wall motion abnormalities. No recurrent chest pain since admission. He has had the following studies/procedures: 1. Stress echo 05/20/2010: Abnormal suggesting LAD and circumflex ischemia at 83% MPHR. Abnormal exercise ECG. Chest pain with exercise. Seven Mets. EF 60-65% with normal wall motion at rest. No significant valvular abnormalities. 2. Cardiac catheterization 05/20/2010: Extensive calcifications proximal LAD, circumflex, RCA. Ostial/proximal LAD 70% with proximal aneurysmal segment followed by 80% and long 50% stenosis. Septal jet blade polisher proximal 50-60%. Proximal circumflex 10-20%. Mid circumflex 30-50%. Proximal OM1 95-99%. Proximal RCA 30%. 3. CABG x2 05/21/2010 at [facility] [place]: FUENTES to LAD and SVG to circumflex branch. 4. Intraoperative RUEL 05/21/2010: EF 55%. Possible PFO. Atrial septal aneurysm. 5. Echo 05/25/2010: EF 55-60%. Small loculated pericardial effusion. No significant valvular abnormalities. 6. Stress Echo 05/31/2013: Reportedly normal stress echo with [facility]. Exercised 10 minutes. No chest pain. 7. Echo 08/02/2018: Normal LV size, wall motion, systolic function. EF 55-60%. No significant diastolic dysfunction. Mild RV dilation with normal systolic function. Mild MR. 8. Holter 10/02/2018: Sinus rhythm with average heart rate 69, ranging 55-97. One PVC. Rare PACs. No arrhythmia. Symptoms correlated with PACs. 9. Echo 10/18/2022: Normal LV size, wall motion, and systolic function. EF 55- 60%. Mild MR. Echodensity (with stalk) protruding into the left atrium. This is noted in parasternal long axis images. 10. RUEL 11/01/22: Normal LV size, wall motion, and systolic function. EF 60-65%. Interatrial septal aneurysm with right to left interatrial shunt noted following agitated saline administration, consistent with PFO. No significant valvular abnormalities. Normal RVSP. Allergies Allergy/AdvReac Type Severity Reaction Status Date / Time adhesive Allergy Intermediate rash Verified 08/07/23 21:48 latex Allergy Intermediate RASH Verified 08/07/23 21:48 Home Medications Medication Instructions Recorded Confirmed Type aspirin 81 mg tablet,delayed 81 mg PO DAILY 07/26/18 08/07/23 History release iwsvehjuoev-fhsalgunk-qms C-Mn 1 cap PO DAILY 07/26/18 08/07/23 History capsule multivitamin 1 tab PO DAILY 07/26/18 08/07/23 History omega 3 350 mg-dha 235 mg-epa 90 1 cap PO DAILY 07/26/18 08/07/23 History mg-fish oil 597 mg capsule,delay rel ([place]-3) metoprolol succinate 50 mg 50 mg PO DAILY #90 tabs 02/19/23 08/07/23 Rx tablet,extended release 24 hr omeprazole 20 mg capsule,delayed 20 mg PO DAILY #90 caps 04/30/23 08/07/23 Rx release rosuvastatin 10 mg tablet 10 mg PO DAILY #90 tabs 05/21/23 08/07/23 Rx meloxicam 7.5 mg tablet 7.5 mg PO DAILY PRN pain #90 tabs 06/08/23 08/07/23 Rx nitroglycerin 0.4 mg sublingual 0.4 mg sublingual Q5M PRN chest 08/08/23 Rx tablet pain #25 tabs Patient History Medical History (Updated 08/07/23 @ 21:14 by Constantin Almaraz DO) Mitral regurgitation Polycythemia Monoclonal gammopathy of unknown significance (MGUS) Osteoarthritis, multiple sites Impaired fasting glucose Hypertension Hyperlipidemia CAD (coronary artery disease) s/p CABG Varicose vein of leg Surgical History History of repair of rotator cuff History of coronary artery bypass graft CABG x 2 in 2010 Family History Father Metastatic melanoma Mother Breast cancer Denies family history of Ovarian cancer Prostate cancer Myocardial infarction Colorectal cancer Social History Smoking Status: Never smoker Tobacco Type: Cigarettes Age Started Using Tobacco: 20; Age Quit Using Tobacco: 56; packs per day: 1; Cigarettes Per Day: 20; Second Hand Exposure: No; Do You Dip or Chew Tobacco: No; Hx Alcohol Use: Yes Alcohol type: beer Alcohol Intake Frequency: 4 or More x per/Week Alcohol Intake Frequency Comment: 1-2 beers per day Hx Substance Use: No Preferred Language: Georgian Communication Ability: Effective Visual Impairment: No Limitations Hearing Ability: Normal 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: No Beliefs That Will Affect Care: None marital status: single Current Living Situation: Alone current occupational status: retired current occupation: worked at [employer] Other Information That Helps Us Care for You: No Feels Safe at Home: Yes Safety Concerns: Feels Safe At This Time Childhood Exposure to Second-Hand Smoke: Yes Diet: regular Dental Care, Regularly: Yes Physical Activity Frequency: 1-2 Times per Week Seatbelt Use: always Sunscreen Use: Yes Assistive Devices: None Review of Systems Review of Systems: All systems reviewed & are unremarkable except as noted in HPI & below Physical Exam Physical Exam: General: Comfortable HEENT: Sclerae anicteric Lungs: Clear to auscultation bilaterally, no crackles or wheezes Cardiac: Regular rate and rhythm, no murmurs. Vascular: 2+ radial bilaterally. Abdomen: Soft, nontender Extremities: Well perfused, no peripheral edema Neuro: Nonfocal Psych: Alert orient x3, normal affect and mood Results & Data Vital Signs (Past 12 Hours) Vital Signs Temp Pulse Pulse Pulse Resp BP Pulse Ox 08/08/23 12:06 85 15 138/85 95 08/08/23 11:14 98.3 F 72 20 138/79 94 08/08/23 08:55 98.2 F 66 14 134/76 97 08/08/23 00:55 62 08/08/23 00:50 97.9 F 63 16 143/81 H 94 08/08/23 00:33 97.9 F 62 16 143/80 H 94 O2 Del Method 08/08/23 12:06 Room Air 08/08/23 11:14 Room Air 08/08/23 08:55 Room Air 08/08/23 00:55 08/08/23 00:50 Room Air 08/08/23 00:33 Room Air PG Care Time/CCT Total # of Minutes Spent Total Time Spent with Patient: Total time spent is greater than 50% in coordination of care (as documented) at patient's floor/unit and/or counseling patient: Coding Level of Care Code 43648 INT INP/OBS CARE 2/55MIN Diagnoses Acute non-ST elevation myocardial infarction (NSTEMI) I21.4
[2023-08-08] MEDS: fentaNYL citrate PF 100 MCG/2 ML VIAL ONE (13:38)
[2023-08-08] MEDS: MIDAZOLAM HCL 1 MG/ML 2ML VIAL ONE ×2 (13:38→14:00)
[2023-08-08] MEDS: niCARdipine HCL INJ 2.5 MG/ML 10 ML AMP ONE (13:39)
[2023-08-08] MEDS: NITROGLYCERIN/D5W 100MCG/ML 20ML SYR ONE (13:39)
[2023-08-08] MEDS: EPTIFIBATIDE 2 MG/ML 10 ML VIAL (CATH LAB USE ONLY) IV ONE (13:40)
[2023-08-08] MEDS: HEPARIN (PORCINE) 1000 UNIT/ML 10 ML (CATH LAB USE ONLY) ONE (13:59)
[2023-08-08] MEDS: OPTIRAY 350 ONE (14:00)
--- NOTE | 2023-08-08 14:04 | Post Anesthesia Assessment ---
Date of Service August 08, 2023 Post Sedation Assessment Vital Signs Temp Pulse Pulse Pulse Resp BP BP 08/08/23 12:06 85 15 138/85 08/08/23 11:14 98.3 F 72 20 138/79 08/08/23 08:55 98.2 F 66 14 134/76 08/08/23 00:55 62 08/08/23 00:50 97.9 F 63 16 143/81 H 08/08/23 00:33 97.9 F 62 16 143/80 H 08/08/23 00:04 65 17 133/74 08/07/23 23:30 67 15 130/79 08/07/23 23:00 62 17 135/78 08/07/23 22:30 63 16 08/07/23 22:30 128/75 08/07/23 22:00 68 14 08/07/23 22:00 143/91 H 08/07/23 21:30 149/98 H 08/07/23 21:30 85 19 08/07/23 21:12 70 08/07/23 21:11 77 18 08/07/23 21:11 156/88 H 08/07/23 21:10 87 18 08/07/23 19:47 97.3 F L 75 18 156/87 H Pulse Ox O2 Del Method 08/08/23 12:06 95 Room Air 08/08/23 11:14 94 Room Air 08/08/23 08:55 97 Room Air 08/08/23 00:55 08/08/23 00:50 94 Room Air 08/08/23 00:33 94 Room Air 08/08/23 00:04 93 Room Air 08/07/23 23:30 95 08/07/23 23:00 93 08/07/23 22:30 92 08/07/23 22:30 08/07/23 22:00 96 08/07/23 22:00 08/07/23 21:30 08/07/23 21:30 95 08/07/23 21:12 08/07/23 21:11 96 08/07/23 21:11 08/07/23 21:10 08/07/23 19:47 95 Room Air Recovery Score Activity: Moves 4 extremities Respiration: Deep Breath/Cough Circulation: +/-20% PreAnes Value Consciousness: Fully Awake Oxygen Saturation: O2 needed for >90% Discharge Sedation Level of Care: Fast Track Phase II Post Sedation Plan On clinical assessment, the patient appears to have tolerated the sedation without complications. Patient is recovering as anticipated. Patient will continue to be monitored by nursing and may be discharged when sedation discharge criteria are met per below protocol. Upon Completions of procedure up to 15 minutes continue every 5 minute vital signs and the P.A.R. score; then discharge to a Phase I or Fast Track to Phase II per the following guidelines: * Discharge Patient to appropriate Phase II area if PAR is 8 or greater or return to pre- procedure baseline. The post - procedure orders will be as directed. * If PAR score is less than 8 or not return to pre-procedure baseline then patient will follow Phase I monitoring till PAR is reached for Phase II. The Phase I may be done in procedure room or may call to secure a Phase I area. * If naloxone or flumazenil are used for reversal, hold in Phase I for continued monitoring from when last reversal dose was given for a minimum of 60 minutes or longer pending the nurse and/or physician discretion of patient condition before discharge to Phase II. Please call the Sedation Physician to re-evaluate and complete post-note for discharge to Phase II area. Do NOT discharge from procedure sedation or Phase 1 until post- sedation evaluation note is complete by procedure /sedation MD Sedation Discharge Instructions to be given to the patient at discharge to home.
--- NOTE | 2023-08-08 14:17 | Hospitalist Progress Note ---
Date of Service August 08, 2023 Assessment & Plan (1) Acute non-ST elevation myocardial infarction (NSTEMI): Plan: Now chest pain-free. No acute EKG changes. Cardiology consultation appreciated. He will undergo left heart catheterization todayAugust 07. Continue current medical management for now. (2) CAD (coronary artery disease): Plan: History of previous coronary artery bypass grafting. Continue current medical management for now. Telemetry. (3) Hyperlipidemia: Plan: Stable. Continue rosuvastatin therapy (4) Hypertension: Plan: Stable. Continue current medical management including beta-sofya Plan Hopeful discharge to home soon Admission and Anticipated Discharge Date Admission Date: August 08, 2023 Subjective Alert and oriented. Chest discomfort has resolved. Troponin is trending downward but remains elevated. He remains on a heparin drip. Cardiology consultation noted. He will undergo left heart catheterization todayAugust 07. Review of Systems 2 Review of Systems: Constitutional-no fever or chills ENT-no blurred vision, no double vision, no epistaxis, no sore throat Respiratory-no cough, no wheezing, no shortness of breath Cardiac-no palpitations, no chest pain, no syncope GI-no nausea, vomiting, diarrhea, melena, hematochezia -no urinary retention, no urinary incontinence, no dysuria, no hematuria Musculoskeletal-no joint pain, no muscle tenderness Skin-no bruising, no rashes, no pruritus Neuro-no isolated weakness, no paresthesia, no weakness Psych-no depression, no anxiety Physical Exam 2 Physical Exam: General-alert and oriented x3, no fever, no chills HEENT-head atraumatic and normocephalic, pupils equal and reactive to light, extraocular muscles intact Neck-no lymphadenopathy or thyromegaly, trachea midline Chest-clear to auscultation. No rales, wheezing or rhonchi Cardiac-regular rate and rhythm, normal S1 and S2 Abdomen-normal bowel sounds, nontender, no hepatosplenomegaly Extremities-no cyanosis, clubbing, or edema Neuro-cranial nerves II through XII intact, motor and sensory function within normal limits, strength symmetrical, no focal deficits Psych-normal affect, normal mood Results & Data Results & Data Vital Signs (Past 12 Hours) Vital Signs Temp Pulse Resp BP Pulse Ox O2 Del Method 08/08/23 12:06 85 15 138/85 95 Room Air 08/08/23 11:14 36.8 C 72 20 138/79 94 Room Air 08/08/23 08:55 36.8 C 66 14 134/76 97 Room Air Laboratory Results 08/08/23 03:49 08/08/23 03:49 PG Care Time/CCT Total # of Minutes Spent Total Time Spent with Patient: Total time spent is greater than 50% in coordination of care (as documented) at patient's floor/unit and/or counseling patient: Coding Level of Care Code 13715 SUB INP/OBS CARE 3/50MIN Diagnoses Acute non-ST elevation myocardial infarction (NSTEMI) I21.4 CAD (coronary artery disease) I25.10 Hyperlipidemia E78.5 Hypertension I10
--- NOTE | 2023-08-08 14:31 | Cardiac Catheterization ---
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 Cardiac Status Clinical evaluation leading to the procedure CAD Presenation: Non STEMI Anginal Classification: CCS IV Diagnostic Physicians Name: Aditya Downey MD Closure Device Recommendations: PCI without planned CABG Cardiac Cath Procedure Full Procedure Date August 08, 2023 Pre-Procedure Diagnosis Pre-Procedure Diagnosis: Non STEMI and CAD AUC Score AUC Score: 8 Post-Procedure Diagnosis Post-Procedure Diagnosis: Severe CAD, Successful PCI and Normal Intracardiac Pressures Procedure(s) Performed Procedure(s) Performed: Coronary Angiography, Left Heart Cath and Ultrasound Guided Vascular Access Shipping And Receiving Assistant Aditya Downey MD Kitchen And Counter Worker(s) Luis Estimated Blood Loss Estimated Blood Loss: 20 Medication(s) Medication(s): Fentanyl, Heparin, Lidocaine 1%, Nicardipine, Nitroglycerin and Versed Medication(s): Ticagrelor Summary of Findings Indication: NSTEMI Access: 6Fr left radial artery Catheters: JL4, JR4, pigtail, JR4 guide Findings: LM - Normal caliber, no significant disease LAD - medium caliber, 80% proximal stenosis, 30% early-mid stenosis. Distal vessel without significant disease as wraps around apex. Small D1 80% ostial stenosis. Circumflex - medium caliber, 20-30% proximal disease. Small OM1, OM2 and LPLB without disease. OM 3 occluded at ostium RCA - Dominant, large caliber, no significant disease. PDA, R-PAV widely patent. FUENTES-LAD - small, widely patent. Distal LAD with competitive flow. SVG-OM - 98% calcified, thrombotic stenosis in distal graft prior to anastomosis. INDY I-II flow in widely patent OM. LVEDP - 9 -- PCI -- Antithrombotic therapy: Heparin, Integrilin, ticagrelor Procedure: SVG to OM cannulated with JR4 guide Pre-procedure flow INDY 1-2 IA Integrilin, vasodilators administered Filter wire passed across lesion into distal vessel before anastomosis Unable to pass stent across calcified stenosis With the aid of telescope support catheter distal vein graft lesion predilated with 3.0 compliant balloon Dilated lesion stented with 4.0 x 30 mm Estrada drug-eluting stent Stent post-dilated with 5.0 noncompliant balloon IC vasodilators administered for spasm Post procedure INDY 3 flow, stent well expanded with minimal residual stenosis. Questionable haziness upstream in mid segment of vein graft. Vein graft rewired with BMW wire. Tagoo IVUS catheter placed across graft into stent. Pullback revealed well apposed stent with no significant vein graft disease, thrombus or evidence of dissection. Arterial Closure: TR band Summary: 1. Acute on chronic 98% stenosis distal SVG to OM 3. 2. Chronic multivessel coronary artery disease -80% proximal LAD 100% ostial chronic OM3 3. Widely patent FUENTES to LAD 4. Normal intracardiac filling pressure 5. Successful PCI of SVG to OM3 with single drug-eluting stent (4.0 x 30 mm Estrada; postdilated with 5.0 NC). 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 Any exceptions are noted below. [employer] Card Cath Procedure Codes Cardiac Catheterization Procedure 1: Cardiovascular Cath Procedures: 91676 Coronaries & LHC (+/-LV) & Grafts/IM (arterial & venous) Therapeutic Services & Ancillary Procedure 1: Cardiovascular Tx and Anc Procedures: 86095 IV Ultrasound (Coronary or Graft) Moderate Sedation Procedure 1: Sedation/Anesthesia: 80630 Mod Sedation by the same physician;Init15 Min Child Age 5 & Up Procedure 2: Sedation/Anesthesia: 70626 Mod Sedation by the same physician; Ea [id number] Minutes Stenting Procedure 1: Cardiovascular Stent Procedures: 57661 Perc tranluminal revascularization of or throughout CABG PG Care Time/CCT Total # of Minutes Spent Total Time Spent with Patient: Total time spent is greater than 50% in coordination of care (as documented) at patient's floor/unit and/or counseling patient:
[2023-08-08] MEDS: TICAGRELOR 90 MG TAB ONE (14:39)
[2023-08-08] MEDS: SODIUM CHLORIDE 0.9% 1,000 ML IV SCH (14:45)
--- NOTE | 2023-08-08 15:21 | XCELERA ---
[id number]
--- NOTE | 2023-08-08 16:03 | Electrocardiogram Report ---
Test Reason : Blood Pressure : / mmHG Vent. Rate : 074 BPM Atrial Rate : 074 BPM P-R Int : 162 ms QRS Dur : 102 ms QT Int : 392 ms P-R-T Axes : 038 -37 083 degrees QTc Int : 435 ms Normal sinus rhythm Left axis deviation Incomplete right bundle branch block Abnormal ECG When compared with ECG of 26-JUL-2018 05:26, No significant change was found Confirmed by Lowell Klein ([id number]) on 08/08/2023 4:03:38 PM Referred By: REFERRED SELF Confirmed By:Lowell Klein
--- NOTE | 2023-08-08 16:13 | Electrocardiogram Report ---
Test Reason : Blood Pressure : / mmHG Vent. Rate : 063 BPM Atrial Rate : 063 BPM P-R Int : 180 ms QRS Dur : 102 ms QT Int : 410 ms P-R-T Axes : 046 -36 061 degrees QTc Int : 419 ms Normal sinus rhythm Left axis deviation Incomplete right bundle branch block Abnormal ECG When compared with ECG of 07-AUG-2023 19:53, (unconfirmed) No significant change was found Confirmed by Lowell Klein ([id number]) on 08/08/2023 4:13:07 PM Referred By: REFERRED SELF Confirmed By:Lowell Klein
--- NOTE | 2023-08-08 16:24 | Electrocardiogram Report ---
Test Reason : Blood Pressure : / mmHG Vent. Rate : 072 BPM Atrial Rate : 072 BPM P-R Int : 176 ms QRS Dur : 096 ms QT Int : 394 ms P-R-T Axes : 053 -43 064 degrees QTc Int : 431 ms Normal sinus rhythm Left axis deviation Incomplete right bundle branch block Abnormal ECG When compared with ECG of 08-AUG-2023 09:01, (unconfirmed) No significant change was found Confirmed by Lowell Klein ([id number]) on 08/08/2023 4:24:19 PM Referred By: REFERRED SELF Confirmed By:Lowell Klein
--- NOTE | 2023-08-09 07:22 | Hospitalist Progress Note ---
Date of Service August 09, 2023 Assessment & Plan (1) Acute non-ST elevation myocardial infarction (NSTEMI): Plan: left heart catheterization today, August 07. SVG to OM 3, JEANNINE Heparin, Integrilin and ticagrelor CAD previous CABG, remains on rosuvastatin to treat dyslipidemia,oa and as secondary risk reduction Remains on metoprolol for htn and treatment of CAD Plan Hopeful discharge to home soon Admission and Anticipated Discharge Date Admission Date: August 08, 2023 Results & Data Results & Data Vital Signs (Past 12 Hours) Vital Signs Temp Pulse Pulse Resp BP Pulse Ox Pulse Ox 08/09/23 02:50 97.9 F 82 14 126/80 96 08/09/23 00:50 94 08/09/23 00:00 68 08/08/23 22:43 97.9 F O2 Del Method O2 Del Method 08/09/23 02:50 Room Air 08/09/23 00:50 Room Air 08/09/23 00:00 08/08/23 22:43 PG Care Time/CCT Total # of Minutes Spent Total Time Spent with Patient: Total time spent is greater than 50% in coordination of care (as documented) at patient's floor/unit and/or counseling patient: Coding Diagnoses Acute non-ST elevation myocardial infarction (NSTEMI) I21.4
[2023-08-09 07:28] LABS: Hematocrit (blood only) 48.3 % (42.0-52.0); Hemoglobin 16.9 g/dl (14.0-18.0); Mean Corpuscular Hemoglobin 33.4 pg (25.0-34.0); Mean Corpuscular Volume 95.5 fL (80.0-100.0); Mean Platelet Volume 9.8 fL (9.4-12.4); Platelet Count 142 K/uL (130-400); RDW Coefficient of Variation 11.8 % (11.5-14.5); RDW Standard Deviation 40.3 fL (36.4-46.3); Red Blood Count 5.06 M/uL (4.70-6.10); White Blood Count 6.34 K/ul (4.8-10.8)
[2023-08-09] MEDS: TICAGRELOR 90 MG TAB PO SCH (07:36)
[2023-08-09 07:53] LABS: BUN Creatinine Ratio 14.7 (10-20); Calcium 9.4 mg/dl (8.6-10.3); Est GFR (African American) 64.7 ml/min; Est GFR (Non-African American) 55.8 ml/min; Potassium 4.4 mmol/L (3.5-5.1)
--- NOTE | 2023-08-09 11:35 | Cardiology Progress Note ---
Date of Service August 09, 2023 Assessment & Plan (1) CAD (coronary artery disease): Plan: Post PCI with JEANNINE to SVG to OM3 Patent FUENTES to LAD. RCA without disease. 2. Preserved LV function 3. Hypertension 4. Dyslipidemia Chest pain-free with walking today Hemodynamically and electrically stable Post procedure labs stable No access site complications From a cardiac standpoint okay with discharge today Home on DAPT with aspirin, ticagrelor Continue home Toprol-XL, statin Follow-up with Dr. Naylor in 1 to 2 weeks We discussed cardiac rehab Admission and Anticipated Discharge Date Admission Date: August 08, 2023 Subjective Feeling well this morning. Up walking halls. No chest pain or dyspnea. No palpitations. Tele reviewed -- no events. Review of Systems Review of Systems: All systems reviewed & are unremarkable except as noted in HPI & below Physical Exam Physical Exam: General: Comfortable HEENT: Sclerae anicteric Lungs: Clear to auscultation bilaterally Cardiac: Regular rate and rhythm Vascular: Left radial artery access site with minimal ecchymosis, no hematoma. Distal pulse and sensation intact. Abdomen: Soft, nontender Extremities: Well perfused, no peripheral edema Neuro: Nonfocal Psych: Alert orient x3, normal affect and mood Results & Data Vital Signs (Past 12 Hours) Vital Signs Temp Pulse Pulse Resp BP Pulse Ox Pulse Ox 08/09/23 11:21 97.3 F L 70 18 127/78 95 08/09/23 08:00 66 08/09/23 07:50 97.7 F 72 18 132/77 95 08/09/23 07:27 73 19 143/83 H 08/09/23 02:50 97.9 F 82 14 126/80 96 08/09/23 00:50 94 08/09/23 00:00 68 O2 Del Method O2 Del Method 08/09/23 11:21 Room Air 08/09/23 08:00 08/09/23 07:50 Room Air 08/09/23 07:27 08/09/23 02:50 Room Air 08/09/23 00:50 Room Air 08/09/23 00:00 PG Care Time/CCT Total # of Minutes Spent Total Time Spent with Patient: Total time spent is greater than 50% in coordination of care (as documented) at patient's floor/unit and/or counseling patient: Coding Level of Care Code 32150 SUB INP/OBS CARE MIN Diagnoses CAD (coronary artery disease) I25.10
[2023-08-09] MEDS: ACETAMINOPHEN 500 MG TAB PO PRN (11:37)
--- NOTE | 2023-08-09 13:06 | Communication Note ---
Date of Service: August 09, 2023 By CMS guidelines, a determination that the admission or continued stay is not medically necessary has been made by a member of the UR committee and a phys ician for this hospital stay, therefore a Code 44 will be completed and the Inpatient admission will be changed to outpatient.
[2023-08-09] MEDS: CLOPIDOGREL BISULFATE 300 MG TAB PO STA (15:08)
--- NOTE | 2023-08-09 17:03 | Discharge Summary ---
Date of Service August 09, 2023 Admission HPI Per Admitting Provider Patient is a 72-year-old male with a past medical history of CAD, previous bypass in [address] [facility], hyperlipidemia, hypertension, previous 26-darj-rgjl smoking history and quit in 2007, and impaired fasting glucose who presents to the hospital for concern of chest pain. It seems patient had setting of chest pain that began at 6:00 the morning of 08/07/2023. Stated at the time that it was midline and nonradiating without shortness of breath or radiation to the jaw. It went away without intervention initially. 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 Unfortunately, his chest pain did return and he took nitroglycerin for his first time ever and it did make his symptoms go away within minutes of taking it. When this episode occurred which was at approximately 3 PM, he did take aspirin as well and decided to come to the emergency room by private vehicle. Patient states that he has never had a heart attack before. No nausea or vomiting. Currently patient is without chest pain. No other complaints at this time ED course: Patient evaluated by provider. Labs are significant for are significant for creatinine of 1.68, and initial troponin of greater than 180 with a second one pending. EKG demonstrating incomplete right bundle branch block which is not new. No territorial evidence of ischemia. No ST elevation. Chest x-ray without acute abnormality noted. The hospitalist service was consulted for admission for concern for NSTEMI. Principal Diagnosis non st elevated mi, unstable angina resolved JEANNINE to SVG OM3 Discharge Exam cardiac exam is regular, lungs are clear, cath site is CDI with good cap refill Discharge Data Allergies Allergy/AdvReac Type Severity Reaction Status Date / Time adhesive Allergy Intermediate rash Verified 08/07/23 21:48 latex Allergy Intermediate RASH Verified 08/07/23 21:48 Consultations 08/08/23 00:50 Consult Cardiology Routine Procedures Performed Operation Date: 08/08/23 11:30 Actual Procedures s Cineradiography w/Routine Exam - Aditya Downey MD p Cath, Left with Cors and Vent - Aditya Downey MD s IVUS Coronary Single Vessel - Aditya Downey MD p Drug Eluting Stent Bypass GR - Aditya Downey MD Ordered Studies 08/08/23 11:27 CL Cath Imgs for PACS use only Stat 08/08/23 15:37 CL IVUS Coronary Single Vessel Routine Hospital Course (1) Acute non-ST elevation myocardial infarction (NSTEMI): left heart catheterization today, August 07. SVG to OM 3, JEANNINE Heparin, Integrilin and transition to plavix, given load in hospital before home did have load of brillinta 08/07, will have 300mg load CAD previous CABG, remains on rosuvastatin to treat dyslipidemia,oa and as secondary risk reduction Remains on metoprolol for htn and treatment of CAD consider outpt cardiac rehab Total Time Total Time Spent Total Time Spent (In Minutes): It required greater than 30 minutes to prepare this patient for discharge. Discharge Plan Discharge Items Patient Disposition: Home - Self-Care Reason For Visit: CHEST PAIN, NSTEMI Discharge Diagnosis: unstable angina, non st elevated myocardial infarction chest pain from narrowed vein graft, status post stent deployment Activity: Per Instructions section Activity Comment: no intentional exercise, consider discussion of cardiac rehab with cardiol Non-emergency contact: Primary Care Provider and Security And Compliance Analyst Call non-emergency contact if: your symptoms worsen Follow-up/Referrals: Zeenat Murillo MD [Primary Care Provider] - 08/16/23 3:00 pm Diet: Heart Healthy Addtl Attending Provider Instructions: ACTIVITY RECOMMENDATIONS: Excess manipulation of the wrist should be avoided for the next 24-48 hours. * No lifting over 2 pounds (approximately a 1/2 gallon of milk) with the utilized arm for 24 hours. * No strenuous activity such as bowling or tennis for 3 days. * Keep the site of the procedure covered with a bandage for 24 hours. *You may shower the day after the procedure. Do not take a tub bath or submerge the puncture site in water for the next 3 days. *Do not operate any motorized equipment for 3 days. SPECIAL CARE INSTRUCTIONS: The site may be slightly bruised and sore following your procedure. Should any of the following occur, contact the DrEagle who performed your procedure. 1. Redness/inflammation, swelling, chills, or fever, or colored drainage at procedure site within 3-7 days after your procedure. 2. Coldness, discoloration, ongoing numbness, severe pain, or swelling. Expect mild tingling of hand and tenderness at the puncture site for up to three days. If this persists beyond three days, or other symptoms develop, notify the Dr. who performed your procedure. BLEEDING: If the procedure site on your wrist begins to bleed, do not panic 1. Place 1 or 2 fingers firmly just slightly above the insertion site to stop the bleeding. You may be able to feel your pulse as you hold pressure. 2. Lift your finger after 5 minutes to see if the bleeding has stopped. 3. Once the bleeding has stopped, gently wipe the wrist area clean with a bandage. * If the bleeding from your wrist does not stop after 10 minutes, or if there is a large amount of bleeding or spurting, call 911 (do not drive yourself to the hospital). SKIN IRRITATION: * You may experience some redness and/or swelling in the area where radiation was administered. If any skin irritation occurs, please contact your family physician. FOLLOW UP VISIT: Keep any scheduled doctor appointments. Addtl Petrography Teacher Provider Instructions: you have been started on Brilinta ( ticagrelor ) and aspirin to help keep your stent open, please do not stop these medicines without first discussing with health care provider Pending Studies at Discharge: No Stand-Alone Forms: My [facility] [employer], Smoking Cessation Medications and DC Order Prescriptions: New clopidogrel [Plavix] 75 mg tablet 75 mg PO DAILY Qty: 30 5RF Continued metoprolol succinate 50 mg tablet extended release 24 hr 50 mg PO DAILY Qty: 90 3RF omeprazole 20 mg capsule,delayed release(DR/EC) 20 mg PO DAILY Qty: 90 3RF rosuvastatin 10 mg tablet 10 mg PO DAILY Qty: 90 3RF nitroglycerin 0.4 mg tablet, sublingual 0.4 mg SL Q5M MDD 3 PRN (Reason: chest pain) Qty: 25 2RF multivitamin Tablet 1 tab PO DAILY [id number] C-Mn Capsule 1 cap PO DAILY aspirin 81 mg Tablet,Delayed Release (Dr/Ec) 81 mg PO DAILY Owings-3 350 mg-235 mg- 90 mg-597 mg Capsule,Delayed Release(Dr/Ec) 1 cap PO DAILY Held meloxicam 7.5 mg tablet 7.5 mg PO DAILY PRN (Reason: pain) Qty: 90 3RF Hold Instructions: Resume on 09/09/23. Discharge Orders: Discharge Order (Routine); Ordered 08/09/23 Ordered By: Terry Wiseman Admission Data Admit Date/Time: 08/08/23 08:40 Attending Provider: Terry Wiseman Admit Provider: Basil Crocker Primary Care Provider: Zeenat Murillo Other Providers: Lowell Klein Other Interventions: Discharge Summary Assessment (RN) Last Done: 08/09/23 13:08 Coding Level of Care Code 16295 INP/OBS DISCH >30 MIN Diagnoses Acute non-ST elevation myocardial infarction (NSTEMI) I21.4
== END 2023-08-09 15:34 | disposition home or self-care (01) | DRG 322 ==
LOC: ED 19:43 → 1E 19:43 → SUATTDRO 21:52 → OBSVTOIN 21:52 → 1E 08-08 00:04 → SUATTDRO 08-08 08:40 → 2E 08-08 22:52

== ENCOUNTER 2023-08-14 15:19 | Inpatient (IN) ==
[2023-08-14] MEDS: NITROGLYCERIN SL 0.4 MG/TAB TAB SL STA (15:57)
[2023-08-14] MEDS: fentaNYL citrate PF 100 MCG/2 ML VIAL IV STA (16:00)
--- NOTE | 2023-08-14 16:00 | Emergency Department Note ---
Impression & Plan ST elevation (STEMI) myocardial infarction ED Provider Note NAME: JEFF CEDILLO AGE: 73 SEX: M : 1950 ARRIVES VIA: Ambulance INFORMANT: Patient, ED PROVIDER(S): Damian Gandara MD CHIEF COMPLAINT: Chest pain HPI: This is a 73-year-old male presenting for chest pain. Patient states he was here last week with an NSTEMI requiring cardiac cath and stent placement. He notes he had a rash as a result of this from the monitor leads. He notes he felt better upon leaving and then today developed a sudden onset of left-sided chest pain into his left arm. He notes he feels moderate shortness of breath as well. He states he was having diaphoresis and he is extremely uncomfortable at this time. Throughout his course he noted that his pain initially was a sharp sensation across his chest which became much more like a pressure sensation and worsening. He eventually began having numbness in his lower extremities. Pain is radiating down his left arm as well. Patient discharged on Eliquis and has been taking this regularly. ROS: See above HPI for pertinent positives & negatives. A total of 10 systems reviewed and were otherwise negative. PAST MEDICAL HISTORY: See Below PAST SURGICAL HISTORY: See Below FAMILY HISTORY: See Below SOCIAL HISTORY: See Below HOME MEDICATIONS: See Below ALLERGIES: See Below VITALS: See Below PHYSICAL EXAMINATION: General: Extremely uncomfortable appearing, diaphoretic Head: Normocephalic and atraumatic Eyes: Normal inspection, extraocular muscles intact Ear, nose, throat: Normal external exam Neck: Normal range of motion Respiratory: lungs clear to auscultation bilaterally Cardiovascular: Regular rate/rhythm, no murmur GI: soft, nontender, no guarding or rebound Extremities: nontender, moves all extremities Neuro: The patient awake and alert, appropriately conversive, no focal deficits, symmetric faces Skin: Scattered urticarial rash across entire body MEDICAL DECISION MAKING: This is a 73-year-old male presenting for chest pain. Patient was here last week and had NSTEMI requiring catheterization and OM 3 stent. Currently patient appears very unwell, diaphoretic, clutching chest and extreme pain. Initial EKG does not reveal acute STEMI pattern however does reveal T wave inversions in lead V2, which is a change from previous -ECG independently interpreted by me with normal sinus rhythm, rate of 84, left axis deviation, normal MD, incomplete right bundle branch block, normal QTc, no ST segment elevations consistent with STEMI criteria, T wave versions in V2 -Chest Xray independently interpreted by me showing possible pulmonary vascular congestion. -4:15 pm, I discussed this EKG with Dr. Downey, previous battery repairer who sent to the patient previously. Recommends NSTEMI treatment if troponin is elevated. -Due to patient's current pain, recent NSTEMI, consider left ventricular aneurysm, dissection, PE -I was at bedside reevaluate patient frequently as patient's pain was somewhat improved after fentanyl/nitroglycerin. However his monitor began showing what appeared to be ST elevations. Upon repeat EKGs this was not revealed however he had numerous further EKGs with me at bedside. Eventually patient began having worsening chest pain again and began having more frequent PVCs eventually coalescing into bigeminy. EKG was taken and then showing ST elevations in her V5 and V6 concerning for ischemia and occlusive myocardial infarction. See read below -At this point, did discuss care with the on-call interventional cardiology, Dr. Harvey at 4:[address] Harvey pictures of the EKG for him to evaluate. At this time he recommends heparin immediately. - He came down to evaluate the patient at bedside. - Patient made a STEMI alert around 5 PM -Patient taken to Rn Ent and admitted to hospitalist service Critical Care Note: I have personally spent 80 minutes of critical care time in the direct management of this patient. This includes bedside care, interpretation of diagnostic studies, and testing, discussion with consultants, patient, and family members, and other required patient management activities. This 80 minutes is in excess of all separately billable procedures. Differential diagnosis: ACS, PE, dissection, pneumonia ER treatment provided: See below Diagnostics interpreted by me: ECG: M ECG independently interpreted by me with normal sinus rhythm, rate of 87, normal MD, normal QRS, normal QTc, ST segment elevations noted in V5, V6 with deep T wave inversions in V2 concerning for STEMI Cardiac Monitoring: An order was placed for continuous cardiac monitoring. The monitor shows a rate of 86 with sinus rhythm. Laboratory studies: As stated above and show below. Imaging studies: See below. Past Med/Surg History Medical History Mitral regurgitation Polycythemia Monoclonal gammopathy of unknown significance (MGUS) Osteoarthritis, multiple sites Impaired fasting glucose Hypertension Hyperlipidemia CAD (coronary artery disease) s/p CABG Varicose vein of leg Surgical History History of repair of rotator cuff History of coronary artery bypass graft CABG x 2 in 2010 Family History Father Metastatic melanoma Mother Breast cancer Denies family history of Ovarian cancer Prostate cancer Myocardial infarction Colorectal cancer Social History Smoking Status: Never smoker Tobacco Type: Cigarettes Age Started Using Tobacco: 20; Age Quit Using Tobacco: 56; packs per day: 1; Cigarettes Per Day: 20; Second Hand Exposure: No; Do You Dip or Chew Tobacco: No; Hx Alcohol Use: Yes Alcohol type: beer Alcohol Intake Frequency: 4 or More x per/Week Alcohol Intake Frequency Comment: 1-2 beers per day Hx Substance Use: No Preferred Language: Frisian Communication Ability: Effective Visual Impairment: No Limitations Hearing Ability: Normal Welfare Adviser Required: No Beliefs That Will Affect Care: None marital status: single Current Living Situation: Alone current occupational status: retired current occupation: worked at [employer] Other Information That Helps Us Care for You: No Feels Safe at Home: Yes Safety Concerns: Feels Safe At This Time Childhood Exposure to Second-Hand Smoke: Yes Diet: regular Dental Care, Regularly: Yes Physical Activity Frequency: 1-2 Times per Week Seatbelt Use: always Sunscreen Use: Yes Assistive Devices: None Allergies Allergies Allergy/AdvReac Type Severity Reaction Status Date / Time adhesive Allergy Intermediate rash Verified 08/14/23 07:27 latex Allergy Intermediate RASH Verified 08/14/23 07:27 Home Meds Home Medications Medication Instructions Recorded Confirmed aspirin 81 mg tablet,delayed 81 mg PO DAILY 07/26/18 08/14/23 release [id number] C-Mn 1 cap PO DAILY 07/26/18 08/14/23 capsule multivitamin 1 tab PO DAILY 07/26/18 08/14/23 omega 3 350 mg-dha 235 mg-epa 90 1 cap PO DAILY 07/26/18 08/14/23 mg-fish oil 597 mg capsule,delay rel (Brusly-3) Previous Rx's Medication Instructions Recorded metoprolol succinate 50 mg 50 mg PO DAILY #90 tabs 02/19/23 tablet,extended release 24 hr omeprazole 20 mg capsule,delayed 20 mg PO DAILY #90 caps 04/30/23 release rosuvastatin 10 mg tablet 10 mg PO DAILY #90 tabs 05/21/23 meloxicam 7.5 mg tablet 7.5 mg PO DAILY PRN pain #90 tabs 06/08/23 nitroglycerin 0.4 mg sublingual 0.4 mg sublingual Q5M PRN chest 08/08/23 tablet pain #25 tabs clopidogrel 75 mg tablet (Plavix) 75 mg PO DAILY #30 tabs 08/09/23 hydroxyzine HCl 25 mg tablet 25 mg PO TID PRN itching #30 tabs 08/14/23 prednisone 20 mg tablet 20 mg PO BID #14 tabs 08/14/23 Results & Data (ED) Vital Signs Vital Signs - 24 hr 08/14/23 15:29 08/14/23 15:29 08/14/23 15:35 Temperature 36.6 C Temperature Source Oral Pulse Rate 87 Pulse Rate from SpO2 Sensor Respiratory Rate 20 Respiratory Effort / Characteristics Short of Breath Blood Pressure 130/84 Blood Pressure Mean 99 Pulse Oximetry 99 98 Oxygen Delivery Method Room Air Room Air Sepsis Recent Fever Within 48 Hours No Sepsis New/Unexplained Change in Mental Status N/A Sepsis Action Taken by Nursing No Action Required 08/14/23 15:48 08/14/23 15:50 08/14/23 15:58 Temperature Temperature Source Pulse Rate 80 79 Pulse Rate from SpO2 Sensor 81 79 Respiratory Rate 20 20 Respiratory Effort / Characteristics Blood Pressure Blood Pressure Mean Pulse Oximetry 100 99 98 Oxygen Delivery Method Room Air Sepsis Recent Fever Within 48 Hours Sepsis New/Unexplained Change in Mental Status Sepsis Action Taken by Nursing 08/14/23 15:58 08/14/23 16:00 08/14/23 16:03 Temperature Temperature Source Pulse Rate 79 84 83 Pulse Rate from SpO2 Sensor 83 83 Respiratory Rate 20 21 Respiratory Effort / Characteristics Blood Pressure Blood Pressure Mean Pulse Oximetry 98 96 Oxygen Delivery Method Sepsis Recent Fever Within 48 Hours Sepsis New/Unexplained Change in Mental Status Sepsis Action Taken by Nursing 08/14/23 16:03 08/14/23 16:10 08/14/23 16:15 Temperature Temperature Source Pulse Rate 79 75 Pulse Rate from SpO2 Sensor 80 76 Respiratory Rate 16 14 Respiratory Effort / Characteristics Blood Pressure 131/81 Blood Pressure Mean 92 Pulse Oximetry 96 96 Oxygen Delivery Method Sepsis Recent Fever Within 48 Hours Sepsis New/Unexplained Change in Mental Status Sepsis Action Taken by Nursing 08/14/23 16:15 08/14/23 16:20 08/14/23 16:30 Temperature Temperature Source Pulse Rate 85 Pulse Rate from SpO2 Sensor 84 Respiratory Rate 34 H Respiratory Effort / Characteristics Blood Pressure 129/80 136/76 Blood Pressure Mean 86 95 Pulse Oximetry 95 Oxygen Delivery Method Sepsis Recent Fever Within 48 Hours Sepsis New/Unexplained Change in Mental Status Sepsis Action Taken by Nursing 08/14/23 16:30 08/14/23 16:40 08/14/23 16:45 Temperature Temperature Source Pulse Rate 85 84 85 Pulse Rate from SpO2 Sensor 84 76 78 Respiratory Rate 26 H 30 H 27 H Respiratory Effort / Characteristics Blood Pressure Blood Pressure Mean Pulse Oximetry 98 98 99 Oxygen Delivery Method Sepsis Recent Fever Within 48 Hours Sepsis New/Unexplained Change in Mental Status Sepsis Action Taken by Nursing 08/14/23 16:45 08/14/23 16:50 08/14/23 17:00 Temperature Temperature Source Pulse Rate 81 82 Pulse Rate from SpO2 Sensor 84 83 Respiratory Rate 18 25 H Respiratory Effort / Characteristics Blood Pressure 130/87 Blood Pressure Mean 98 Pulse Oximetry 97 96 Oxygen Delivery Method Sepsis Recent Fever Within 48 Hours Sepsis New/Unexplained Change in Mental Status Sepsis Action Taken by Nursing 08/14/23 17:00 08/14/23 17:10 08/14/23 17:10 Temperature Temperature Source Pulse Rate 86 Pulse Rate from SpO2 Sensor Respiratory Rate Respiratory Effort / Characteristics Blood Pressure 128/86 130/74 Blood Pressure Mean 99 94 Pulse Oximetry Oxygen Delivery Method Sepsis Recent Fever Within 48 Hours Sepsis New/Unexplained Change in Mental Status Sepsis Action Taken by Nursing 08/14/23 17:19 08/14/23 17:19 Temperature Temperature Source Pulse Rate 87 Pulse Rate from SpO2 Sensor Respiratory Rate 19 Respiratory Effort / Characteristics Blood Pressure 136/80 Blood Pressure Mean 98 Pulse Oximetry Oxygen Delivery Method Sepsis Recent Fever Within 48 Hours Sepsis New/Unexplained Change in Mental Status Sepsis Action Taken by Nursing Laboratory Data 08/14/23 19:09 08/14/23 15:36 Lab Results 08/14/23 08/14/23 08/14/23 Range/Units 15:36 17:52 18:11 WBC 12.94 H (4.8-10.8) K/ul RBC 4.87 (4.70-6.10) M/uL Hgb 16.3 (14.0-18.0) g/dl Hct 45.3 (42.0-52.0) % MCV 93.0 (80.0-100.0) fL MCH 33.5 (25.0-34.0) pg MCHC 36.0 (32.0-36.0) g/dL RDW Std Deviation 39.7 (36.4-46.3) fL RDW Coeff of Jenn 11.7 (11.5-14.5) % Plt Count 174 (130-400) K/uL MPV 9.9 (9.4-12.4) fL Immature Gran % (Auto) 0.3 % Neut % (Auto) 85.9 % Lymph % (Auto) 9.0 % [place] % (Auto) 3.2 % Eos % (Auto) 1.5 % Baso % (Auto) 0.1 % Neut # (Auto) 11.12 H (1.40-6.50) K/uL Lymph # (Auto) 1.17 L (1.20-3.40) K/uL [place] # (Auto) 0.41 (0.11-0.59) K/uL Eos # (Auto) 0.19 (0.00-0.50) K/uL Baso # (Auto) 0.01 (0.00-0.20) K/uL Immature Gran # (Auto) 0.04 (0.01-0.20) K/uL APTT 27 (21-31) Seconds PTT Ratio 1.0 Activ Coag Time Kaolin 190 H 250 H (94-140) SECONDS Sodium 134 L (136-145) mmol/L Potassium 4.1 (3.5-5.1) mmol/L Chloride 102 (98-107) mmol/L Carbon Dioxide 24 (21-32) mmol/L Anion Gap 8 (3-11) BUN 22 (6-23) mg/dl Creatinine 1.23 (0.6-1.4) mg/dl Est Cr Clr Drug Dosing 59.7 ml/min Est GFR ( Amer) 68.0 ml/min Est GFR (Non-Af Amer) 58.7 ml/min BUN/Creatinine Ratio 17.9 (10-20) Glucose 161 H (70-99(Fasting)) mg/dl Calcium 10.1 (8.6-10.3) mg/dl Total Bilirubin 0.8 (0.2-1.0) mg/dl AST 22 (13-39) U/L ALT 16 (7-52) U/L Alkaline Phosphatase 67 (34-104) U/L Troponin I High Sens 14.6 (0-20) pg/ml Total Protein 7.0 (6.0-8.3) gm/dl Albumin 4.3 (3.4-5.0) gm/dl Globulin 2.7 (2.5-4.0) gm/dl Albumin/Globulin Ratio 1.6 (0.9-2) Lipase 24 (11-82) U/L Administered Medications Heparin Sodium/Dextrose (Heparin Sodium/Dextrose) 25,000 units in 500 mls @ 18 mls/hr IV .Q24H [facility]; Protocol Stop: 09/13/23 17:14 Last Titration: 08/14/23 19:38 Dose: 900 units/hr, 18 mls/hr Documented By: CF Co-signed By: ROXI Admin: 08/14/23 16:56 Dose: 900 units/hr, 18 mls/hr Documented By: MARTI Co-signed By: MIGUELINA Sodium Chloride (Nss) 1,000 mls @ 75 mls/hr IV .[id number] [facility] Stop: 09/13/23 18:29 Last Admin: 08/14/23 20:12 Dose: 75 mls/hr Documented By: MULU Nitroglycerin/Dextrose (Nitroglycerin/D5w 100 Mcg/Ml) 250 mls @ 3 mls/hr IV .Q24H [facility]; Protocol Stop: 09/13/23 19:59 Last Admin: 08/14/23 20:11 Dose: 5 mcg/min, 3 mls/hr Documented By: MULU Co-signed By: FARTUN Miscellaneous (Icu Protocol For Hyperglycemia) 1 each N/A ACHS [facility] Stop: 08/16/23 20:59 Last Admin: 08/14/23 20:19 Dose: Not Given Documented By: CF Morphine Sulfate (Morphine Sulfate 2 Mg/Ml Carp) 2 mg IV Q4 PRN PRN Reason: Pain Stop: 08/28/23 19:55 Last Admin: 08/14/23 20:23 Dose: 2 mg Documented By: MULU Discontinued Medications Atropine Sulfate (Atropine Sulfate 0.1 Mg/Ml 10ml Syr) Confirm Administered Dose 1 mg IV .STK-MED ONE Stop: 08/14/23 17:52 Last Admin: 08/14/23 19:48 Dose: Not Given Documented By: MULU Diphenhydramine HCl (Diphenhydramine 50 Mg/Ml Vial) Confirm Administered Dose 50 mg .ROUTE .STK-MED ONE Stop: 08/14/23 17:11 Last Admin: 08/14/23 18:21 Dose: 50 mg Documented By: IDALIA Famotidine (Famotidine 20mg/5ml Iv Push) Confirm Administered Dose 20 mg IV .STK-MED ONE Stop: 08/14/23 17:11 Last Admin: 08/14/23 18:22 Dose: 20 mg Documented By: IDALIA Fentanyl Citrate (Fentanyl Citrate Pf 100 Mcg/2 Ml Vial) 50 mcg IV NOW STA Stop: 08/14/23 15:52 Last Admin: 08/14/23 16:00 Dose: 50 mcg Documented By: MARTI Fentanyl Citrate (Fentanyl Citrate Pf 100 Mcg/2 Ml Vial) Confirm Administered Dose 100 mcg .ROUTE .STK-MED ONE Stop: 08/14/23 17:05 Last Increment: 08/14/23 18:19 Dose: 50 mcg Documented By: IDALIA Heparin Sodium (Porcine) (Heparin Sod (Porcine) 1000 Unit/Ml) 4,000 units IV NOW ONE Stop: 08/14/23 17:03 Last Admin: 08/14/23 16:56 Dose: 4,000 units Documented By: MARTI Co-signed By: MIGUELINA Heparin Sodium (Porcine) (Heparin (Porcine) 1000 Unit/Ml 10 Ml (Rn Ent Use Only)) Confirm Administered Dose 10,000 units .ROUTE .STK-MED ONE Stop: 08/14/23 17:05 Last Admin: 08/14/23 18:20 Dose: 3,000 units Documented By: IDALIA Heparin Sodium/Sodium Chloride (Heparin In Nss Infusion 1000 Unit/500 Ml (2 U/Ml) Bag) Confirm Administered Dose 3,000 units IV .STK-MED ONE Stop: 08/14/23 17:05 Last Admin: 08/14/23 18:20 Dose: 3,000 units Documented By: JARROD Ioversol (Optiray 350) Confirm Administered Dose 1 ml .ROUTE .STK-MED ONE Stop: 08/14/23 17:06 Last Admin: 08/14/23 18:21 Dose: 210 ml Documented By: JARROD Methylprednisolone (Methylprednisolone 125 Mg/2 Ml Vial) Confirm Administered Dose 125 mg .ROUTE .STK-MED ONE Stop: 08/14/23 17:11 Last Admin: 08/14/23 18:22 Dose: 125 mg Documented By: IDALIA Midazolam HCl (Midazolam Hcl 1 Mg/Ml 2ml Vial) Confirm Administered Dose 2 mg .ROUTE .STK-MED ONE Stop: 08/14/23 17:05 Last Admin: 08/14/23 18:21 Dose: 2 mg Documented By: IDALIA Nicardipine HCl (Nicardipine Hcl Inj 2.5 Mg/Ml 10 Ml Amp) Confirm Administered Dose 25 mg .ROUTE .STK-MED ONE Stop: 08/14/23 17:05 Last Admin: 08/14/23 19:48 Dose: Not Given Documented By: MULU Nitroglycerin (Nitroglycerin Sl 0.4 Mg/Tab Tab) 0.4 mg SL NOW STA Stop: 08/14/23 15:52 Last Admin: 08/14/23 15:57 Dose: 0.4 mg Documented By: MARTI Nitroglycerin (Nitroglycerin 2% Ointment 30gm Tube) Confirm Administered Dose 18 inch EXT .STK-MED ONE Stop: 08/14/23 16:28 Last Admin: 08/14/23 16:29 Dose: 1 inch Documented By: ML Nitroglycerin/Dextrose (Nitroglycerin/D5w 100mcg/Ml 20ml Syr) Confirm Administered Dose 2,000 mcg .ROUTE .STK-MED ONE Stop: 08/14/23 17:06 Last Admin: 08/14/23 19:48 Dose: Not Given Documented By: MULU Imaging Data Radiologist's Impression: Chest X-Ray 08/14/23 15:49 XR chest 1V portable CLINICAL HISTORY: Chest pain, nonspecific COMPARISON STUDY: No previous studies for comparison. FINDINGS: No pneumothorax or pleural effusion is present. Lung volumes are mildly diminished. Mild interstitial prominence is noted. There are median sternotomy wires and clips from bypass grafting. Cardiomediastinal silhouette is stable. No consolidation is present. IMPRESSION: Interstitial prominence. This may be due to a hypoventilatory study. Pulmonary vascular congestion with mild pulmonary edema could appear similar. ACT 112: Negative or not required by law. Electronically signed by: Brandon Murillo M.D. 08/14/2023 4:05 PM Discharge Plan Visit Data Chief Complaint: Chest Pain Stated Complaint: CHEST PAIN GOING INTO L ARM ED Provider: Damian Gandara Discharge Problem: ST elevation (STEMI) myocardial infarction Patient Disposition: Admitted As Inpatient Discharge Instructions Interventions: ED Discharge Assessment Last Done: 08/14/23 17:22
--- NOTE | 2023-08-14 16:08 | XRay Report ---
XR chest 1V portable CLINICAL HISTORY: Chest pain, nonspecific COMPARISON STUDY: No previous studies for comparison. FINDINGS: No pneumothorax or pleural effusion is present. Lung volumes are mildly diminished. Mild in terstitial prominence is noted. There are median sternotomy wires and clips from bypass grafting. Car diomediastinal silhouette is stable. No consolidation is present. IMPRESSION: Interstitial prominence. This may be due to a hypoventilatory study. Pulmonary vascular congestion with mild pulmonary edema could appear similar. ACT 112: Negative or not required by law. Electronically signed by: Brnadon Murillo M.D. 08/14/2023 4:05 PM
[2023-08-14 16:21] LABS: Basophils # (auto) 0.01 K/uL (0.00-0.20); Basophils % (auto) 0.1 %; Eosinophils # (auto) 0.19 K/uL (0.00-0.50); Eosinophils % (auto) 1.5 %; Hematocrit (blood only) 45.3 % (42.0-52.0); Hemoglobin 16.3 g/dl (14.0-18.0); Immature Granulocytes # (auto) 0.04 K/uL (0.01-0.20); Immature Granulocytes % (auto) 0.3 %; Lymphocytes # (auto) 1.17 K/uL (1.20-3.40); Mean Corpuscular Hemoglobin 33.5 pg (25.0-34.0); Mean Platelet Volume 9.9 fL (9.4-12.4); Monocytes # (auto) 0.41 K/uL (0.11-0.59); Monocytes % (auto) 3.2 %; Neutrophils # (auto) 11.12 K/uL (1.40-6.50); Neutrophils % (auto) 85.9 %; Platelet Count 174 K/uL (130-400); RDW Coefficient of Variation 11.7 % (11.5-14.5); RDW Standard Deviation 39.7 fL (36.4-46.3); Red Blood Count 4.87 M/uL (4.70-6.10); White Blood Count 12.94 K/ul (4.8-10.8)
[2023-08-14] MEDS: NITROGLYCERIN 2% OINTMENT 30GM TUBE EXT ONE (16:29)
[2023-08-14] MEDS ORDERED: Heparin IV Adult Wt-Based Standard w/ INITIAL Bolus Protocol IV STA (16:37)
[2023-08-14] MEDS ORDERED: Heparin IV Adult Wt-Based Standard w/ INITIAL Bolus Protocol IV SCH (16:45)
[2023-08-14 16:46] LABS: Albumin Globulin Ratio 1.6 (0.9-2); Albumin Level 4.3 gm/dl (3.4-5.0); BUN Creatinine Ratio 17.9 (10-20); Bilirubin,Total 0.8 mg/dl (0.2-1.0); Calcium 10.1 mg/dl (8.6-10.3); Creatinine Clr Calc Pharmacy 59.7 ml/min; Est GFR (Non-African American) 58.7 ml/min; Globulin 2.7 gm/dl (2.5-4.0); Potassium 4.1 mmol/L (3.5-5.1)
[2023-08-14] MEDS ORDERED: Heparin IV Adult Wt-Based Low-Dose w/ INITIAL Bolus Protocol IV SCH (16:49)
[2023-08-14 16:50] LABS: Troponin I High Sensitivity 14.6 pg/ml (0-20)
[2023-08-14] MEDS ORDERED: HEPARIN SOD (PORCINE) 1000 UNIT/ML IV ONE (16:53)
[2023-08-14] MEDS: HEPARIN SODIUM/DEXTROSE 25,000 UNITS/500 ML BAG IV SCH (16:56)
[2023-08-14] MEDS: HEPARIN SOD (PORCINE) 1000 UNIT/ML IV ONE (16:56)
[2023-08-14] MEDS ORDERED: HEPARIN SODIUM/DEXTROSE 25,000 UNITS/500 ML BAG IV SCH (17:00)
--- NOTE | 2023-08-14 17:43 | History & Physical Report ---
Date of Service August 14, 2023 Assessment & Plan (1) Chest pain: Plan: Chest pain, history of multivessel CAD with recent PCI Patient presented with severe 12/10 sudden onset chest pain, diaphoresis and with progressive ischemic EKG changes despite initial troponin of 14.6. Taken emergently to the [facility] CAB[place] [facility] [place]AD and SVG to circumflex Cath 08/08/2023 --> PCI JEANNINE to SVGOM 3. Received ticagrelor at that time, was discharged on aspirin/Plavix. 08/13 SVG stent thrombus found on cath s/p angio;Patient was found to have multiple clots at his site of SVG intervention. Intevention was attempted; equipemnt was not able to be passed distal to the stent. Patient was placed on heparin drip and transferred to the ICU. --> switch to aspirin + brilinta 80mg BID starting 08/14. Continue heparin gtt for 24 hours. -Admitted to ICU for post cath care (2) CAD (coronary artery disease): (3) Rash: Plan: Diffuse pruritic maculopapular rash, history of latex/adhesive allergy Denies new topical/skin exposures. Allergies coincides with both potential latex exposure, in addition to Plavix his only new medication Diffuse pruritic, tender papular rash Continue steroids, prednisone 40 mg daily, hydroxyzine 3 times daily, topical hydrocortisone Received methylprednisolone 125 mg on admission Outpatient follow-up with allergy No airway/respiratory involvement Mild leukocytosis without left shift, no eosinophilia is noted (4) Hyperlipidemia: Plan: Hyperlipidemia Continue rosuvastatin (5) Hypertension: Plan: Hypertension Continue beta-sofya Plan IgG lambda MGUS UPEP negative for M spike, no anemia/hypercalcemia/renal insufficiency due to able to myeloma on prior follow-ups History of Present Illness Primary Care Provider: Zeenat Murillo MD 73yo M recently admitted with NSTEMI s/p cath OM3 stent and d/c 08/08 presented for sudden onset of severe chest pain. Patient reported earlier today he developed severe pain in his left chest which radiated to his left arm, felt a heavy pressure and pain in his chest up to a 12/10 only slightly improved to 10/10 after nitro, feels warm and sweaty but not feverish and feels slightly anxious/short of breath. Continues to have chest pain at time of bedside assessment. To the [facility] emergently. Patient also has a diffuse expanding rash which started at his IV sites and Coban sites and is with a prior history of latex allergy. Patient was started on topical hydrocortisone, prednisone 20 mg twice daily, and hydroxyzine 3 times daily but this rash has spread diffusely including to his back. Painful and sometimes itchy. Did review with allergy, patient does have a latex allergy and this started at his adhesive sites but could also represent a Plavix allergy as this was started at about the same time patient was transition to this from Brilinta. Agree with continuing steroids, hydroxyzine, and topical steroids at this time. If possible reasonable to pursue alternative antiplatelet to Plavix such as Brilinta as Plavix allergy/contribution cannot be ruled out as it started at relatively the same time Medical History: Reviewed Medications: Reviewed Surgical History: Reviewed Family history: Reviewed Allergies: Reviewed Social History: Reviewed Code Status: Full Allergies Allergy/AdvReac Type Severity Reaction Status Date / Time adhesive Allergy Intermediate rash Verified 08/14/23 07:27 clopidogrel Allergy Intermediate Rash Verified 08/17/23 12:04 latex Allergy Intermediate RASH Verified 08/14/23 07:27 Home Medications Medication Instructions Recorded Confirmed Type aspirin 81 mg tablet,delayed 81 mg PO DAILY 07/26/18 08/20/23 History release kssgzjawlva-kihwvudza-wgz C-Mn 1 cap PO DAILY 07/26/18 08/20/23 History capsule multivitamin 1 tab PO DAILY 07/26/18 08/20/23 History omega 3 350 mg-dha 235 mg-epa 90 1 cap PO DAILY 07/26/18 08/20/23 History mg-fish oil 597 mg capsule,delay rel ([place]-3) metoprolol succinate 50 mg 50 mg PO DAILY #90 tabs 02/19/23 08/20/23 Rx tablet,extended release 24 hr omeprazole 20 mg capsule,delayed 20 mg PO DAILY #90 caps 04/30/23 08/20/23 Rx release rosuvastatin 10 mg tablet 10 mg PO DAILY #90 tabs 05/21/23 08/20/23 Rx meloxicam 7.5 mg tablet 7.5 mg PO DAILY PRN pain #90 tabs 06/08/23 08/20/23 Rx nitroglycerin 0.4 mg sublingual 0.4 mg sublingual Q5M PRN chest 08/08/23 08/20/23 Rx tablet pain #25 tabs hydroxyzine HCl 25 mg tablet 25 mg PO TID PRN itching #30 tabs 08/14/23 08/20/23 Rx prednisone 20 mg tablet 20 mg PO DAILY #14 tabs 08/17/23 08/20/23 Rx Past Med/Surg History Medical History Mitral regurgitation Polycythemia Monoclonal gammopathy of unknown significance (MGUS) Osteoarthritis, multiple sites Impaired fasting glucose Hypertension Hyperlipidemia CAD (coronary artery disease) s/p CABG Varicose vein of leg Surgical History History of repair of rotator cuff History of coronary artery bypass graft CABG x 2 in 2010 Family History Father Metastatic melanoma Mother Breast cancer Denies family history of Ovarian cancer Prostate cancer Myocardial infarction Colorectal cancer Social History Smoking Status: Never smoker Tobacco Type: Cigarettes Age Started Using Tobacco: 20; Age Quit Using Tobacco: 56; packs per day: 1; Cigarettes Per Day: 20; Second Hand Exposure: No; Do You Dip or Chew Tobacco: No; Hx Alcohol Use: Yes Alcohol type: beer Alcohol Intake Frequency: 4 or More x per/Week Alcohol Intake Frequency Comment: 1-2 beers per day Hx Substance Use: No Preferred Language: Maldivian Communication Ability: Effective Visual Impairment: No Limitations Hearing Ability: Normal Tower Equipment Repairer Required: No Beliefs That Will Affect Care: None marital status: single Current Living Situation: Alone current occupational status: retired current occupation: worked at [employer] Feels Safe at Home: Yes Childhood Exposure to Second-Hand Smoke: Yes Diet: regular Dental Care, Regularly: Yes Physical Activity Frequency: 1-2 Times per Week Seatbelt Use: always Sunscreen Use: Yes Assistive Devices: None Physical Exam 2 Physical Exam: General: A&Ox3. NAD. Appears uncomfortable. Skin: Diffuse maculopapular pruritic, tender to the touch blanching rash as pictured below. Rash extends and encompasses the back. With additional contact distributed elements including left arm at site of prior COVID HEENT: Atraumatic, normocephalic. Pulm: CTAB A&P. -wheezes, -rales, -rhonchi. Symmetrical chest rise. No increased work of breathing. No respiratory distress. Cardiac: RRR, -mrg. Radial pulses intact and symmetrical. Abdominal: Nontender, nondistended, soft. BS present. Extremities: Warm, slightly moist Results & Data Results & Data Vital Signs (Past 12 Hours) Vital Signs Temp Pulse Resp BP Pulse Ox O2 Del Method 08/14/23 17:19 87 19 08/14/23 17:19 136/80 08/14/23 17:10 130/74 08/14/23 17:10 86 08/14/23 17:00 128/86 08/14/23 17:00 82 25 H 96 08/14/23 16:50 81 18 97 08/14/23 16:45 130/87 08/14/23 16:45 85 27 H 99 08/14/23 16:40 84 30 H 98 08/14/23 16:30 85 26 H 98 08/14/23 16:30 136/76 08/14/23 16:20 85 34 H 95 08/14/23 16:15 129/80 08/14/23 16:15 75 14 96 08/14/23 16:10 79 16 96 08/14/23 16:03 131/81 08/14/23 16:03 83 21 96 08/14/23 16:00 84 20 98 08/14/23 15:58 79 08/14/23 15:58 98 Room Air 08/14/23 15:50 79 20 99 08/14/23 15:48 80 20 100 08/14/23 15:35 98 Room Air 08/14/23 15:29 36.6 C 87 20 130/84 99 Room Air PG Care Time/CCT Total # of Minutes Spent Total Time Spent with Patient: Total time spent is greater than 50% in coordination of care (as documented) at patient's floor/unit and/or counseling patient: Coding Level of Care Code 34372 INT INP/OBS CARE 3/75MIN Diagnoses Chest pain R07.9 CAD (coronary artery disease) I25.10 Rash R21 Hyperlipidemia E78.5 Hypertension I10
[2023-08-14 17:58] LABS: Partial Thromboplastin Time 27 Seconds (21-31)
[2023-08-14] MEDS: fentaNYL citrate PF 100 MCG/2 ML VIAL ONE (18:19)
[2023-08-14] MEDS: HEPARIN (PORCINE) 1000 UNIT/ML 10 ML (CATH LAB USE ONLY) ONE (18:20)
[2023-08-14] MEDS: diphenhydrAMINE 50 MG/ML VIAL ONE (18:21)
[2023-08-14] MEDS: OPTIRAY 350 ONE (18:21)
[2023-08-14] MEDS: MIDAZOLAM HCL 1 MG/ML 2ML VIAL ONE (18:21)
[2023-08-14] MEDS: FAMOTIDINE 20MG/5ML IV PUSH IV ONE (18:22)
[2023-08-14] MEDS: methylPREDNISolone 125 MG/2 ML VIAL ONE (18:22)
[2023-08-14] MEDS ORDERED: ATROPINE SULFATE 0.1 MG/ML 10ML SYR IV PRN (18:24)
[2023-08-14] MEDS ORDERED: ONDANSETRON INJ 2 MG/ML 2 ML VIAL IV PRN (18:24)
--- NOTE | 2023-08-14 18:42 | Critical Care Consultation ---
Date of Consultation August 14, 2023 Assessment & Plan (1) Chest pain: (2) Rash: (3) Acute non-ST elevation myocardial infarction (NSTEMI): (4) CAD (coronary artery disease): (5) Hyperlipidemia: (6) Hypertension: (7) Impaired fasting glucose: Plan Reason Critically Ill: 73 YOM presents with chest pain s/p JEANNINE to SVG OM-3 on 08/08/23 and recurrent chest pain on 08/14/23, return from wastewater analyst lab analyst with clot removal from previous stent. To ICU post procedure on heparin infusion. Neuro - No acute needs CAM ICU: NEGATIVE Cardiac - STEMI, Acute occlusion of stented artery-SVG OM3, Hx CABG, HLD, HTN - Post clot removal to stent recently placed on 08/08/23 SVG OM3 - Follow RIGHT groin access sit- neuro and CV checks - Antiplatelet medications per cardiology- Heparin infusion x48 hours - Transition to DAPT per cardiology when appropriate - Chest Pain remains post cath- nitroglycerine infusion and Morphine for pain will be administered- briefly updated Dr. Ambrosio which agrees. - Continue statin - Continue BB as hemodynamics allow Respiratory - NO acute needs GI - GERD - Continue PPI RENAL/LYTES - Hx CKD - No acute needs ENDO - No acute needs HEME - No acute needs ID - No concern for acute infections SKin: Rash DDX: Contact dermatitis vs. reaction to adhesives/leads vs. medication rash vs. other - He is without wheezing, itchy eyes, or - Renal function normal - No ulcerations in mouth and no desqumatation - Favor a contact dermatitis from adhesives at this time- continue with steroids orally, topical, and hydroxyzine for itching. LINES/IV ACCESS - PIV, Continue use of these lines DVT PROPHYLAXIS - SCDS, Heparin infusion DISPO: ICU for ~24 hours post procedure follow hemodynamics and symptomatology I have personally spent 45 minutes of critical care time in the direct management of this patient. This is a life/limb threatening event. This includes time spent evaluating patient, direct bedside care, chart review, placing orders, interpretation of diagnostic studies, discussion with consultants, patient, and family members, as well as other required patient management activities. This time is exclusive of all separately billable procedures, and teaching time and separate from and in addition to any other critical care service time. Thank you for allowing us to participate in the care of this patient. Please refer to my attending physician's documentation for any further recommendations. History of Present Illness Reason for Consultation: Chest pain in setting of recent cath with PCI- Post cath with clot removal Requesting Physician: Fredy Lane MD Attending Physician: Oscar Harvey MD, PhD History of Present Illness 73 YOM with previous medical history of : HLD, HTN, CAD with CABG 2010, stent to SVG 08/08/23 with JEANNINE to SVG OM-3. Patient reports he had onset of chest pain around 1530 this morning, that was left side of chest and was worse than his oringinal presentation on 08/08/23. The pain was sudden sharp as well as pressure, it was associated with radiation to his left shoulder, and also associated with diaphoresis and mild dyspnea. He presented to the EMD, ECG was performed and he was given nitroglycerine SL with mild improvement. He was taken urgently to the wastewater analyst lab analyst. Reported removal of clot from recent JEANNINE site. He was transferred to the ICU awake and alert, on no vasoactive medications. Access was obtained through right groin and that is covered with tegaderm and no hematoma noted, right leg is warm with palpable pulses, and no hematoma noted. He reports that he remains with slight chest discomfort still 4-5/10 which shortly after stated it was 9/10. No radiation and no dyspnea. Will start on Nitro infusion. Patient also presents with rash to chest, armpits, and arms, diffuse macular papular rash for which he was previously started on steroids, and Plavix changed to Brilinta. CODE: FULL Allergies Allergy/AdvReac Type Severity Reaction Status Date / Time adhesive Allergy Intermediate rash Verified 08/14/23 07:27 latex Allergy Intermediate RASH Verified 08/14/23 07:27 Home Medications Medication Instructions Recorded Confirmed Type aspirin 81 mg tablet,delayed 81 mg PO DAILY 07/26/18 08/14/23 History release uveiolqcldz-ymolfckfr-vef C-Mn 1 cap PO DAILY 07/26/18 08/14/23 History capsule multivitamin 1 tab PO DAILY 07/26/18 08/14/23 History omega 3 350 mg-dha 235 mg-epa 90 1 cap PO DAILY 07/26/18 08/14/23 History mg-fish oil 597 mg capsule,delay rel ([place]-3) metoprolol succinate 50 mg 50 mg PO DAILY #90 tabs 02/19/23 08/14/23 Rx tablet,extended release 24 hr omeprazole 20 mg capsule,delayed 20 mg PO DAILY #90 caps 04/30/23 08/14/23 Rx release rosuvastatin 10 mg tablet 10 mg PO DAILY #90 tabs 05/21/23 08/14/23 Rx meloxicam 7.5 mg tablet 7.5 mg PO DAILY PRN pain #90 tabs 06/08/23 08/14/23 Rx nitroglycerin 0.4 mg sublingual 0.4 mg sublingual Q5M PRN chest 08/08/23 08/14/23 Rx tablet pain #25 tabs clopidogrel 75 mg tablet (Plavix) 75 mg PO DAILY #30 tabs 08/09/23 08/14/23 Rx hydroxyzine HCl 25 mg tablet 25 mg PO TID PRN itching #30 tabs 08/14/23 08/14/23 Rx prednisone 20 mg tablet 20 mg PO BID #14 tabs 08/14/23 08/14/23 Rx Patient History Medical History Mitral regurgitation Polycythemia Monoclonal gammopathy of unknown significance (MGUS) Osteoarthritis, multiple sites Impaired fasting glucose Hypertension Hyperlipidemia CAD (coronary artery disease) s/p CABG Varicose vein of leg Surgical History History of repair of rotator cuff History of coronary artery bypass graft CABG x 2 in 2010 Family History Father Metastatic melanoma Mother Breast cancer Denies family history of Ovarian cancer Prostate cancer Myocardial infarction Colorectal cancer Social History Smoking Status: Never smoker Tobacco Type: Cigarettes Age Started Using Tobacco: 20; Age Quit Using Tobacco: 56; packs per day: 1; Cigarettes Per Day: 20; Second Hand Exposure: No; Do You Dip or Chew Tobacco: No; Hx Alcohol Use: Yes Alcohol type: beer Alcohol Intake Frequency: 4 or More x per/Week Alcohol Intake Frequency Comment: 1-2 beers per day Hx Substance Use: No Preferred Language: Bengali Communication Ability: Effective Visual Impairment: No Limitations Hearing Ability: Normal Dry Food Products Mixer Required: No Beliefs That Will Affect Care: None marital status: single Current Living Situation: Alone current occupational status: retired current occupation: worked at [employer] Other Information That Helps Us Care for You: No Feels Safe at Home: Yes Safety Concerns: Feels Safe At This Time Childhood Exposure to Second-Hand Smoke: Yes Diet: regular Dental Care, Regularly: Yes Physical Activity Frequency: 1-2 Times per Week Seatbelt Use: always Sunscreen Use: Yes Assistive Devices: None Review of Systems Review of Systems: REVIEW OF SYSTEMS: Constitutional: No fever, sweats or chills Eyes: No diplopia, no worsening or blurred vision ENT: normal hearing, no trouble swallowing Respiratory: No cough, sputum, dyspnea at rest or on exertion Cardiovascular:(+)chest pain, NO tightness or palpitations Abdomen: No pain, nausea, vomiting, diarrhea or constipation Musculoskeletal: No joint pain, calf pain, swelling Neurologic: No weakness, numbness/tingling, or balance problems Psychiatric: No anxiety or depression Skin: (+) rash Physical Exam Physical Exam: PHYSICAL EXAM: General: awake, alert, still little groggy following sedation, but appropriate Head: Normocephalic, atraumatic ENT: PERRLA, EOMI, no pharyngeal exudate, mucous membranes moist Neuro: AAO x 3, speech clear and appropriate, strength intact bilaterally 5/5, sensation intact and equal all extremities and dermatomes, no pronator drift Chest: equal rise and fall of the chest, no accessory muscle use, no heaves or thrills, Clear to auscultation, on room air, Cardiac: Regular rate and rhythm, telemetry reviewed-NSR, skin warm dry, cap refill <3 seconds, peripheral pulses +2 no JVD, no murmur, no edema GI: NABS x 4 quadrants, soft, nontender to palpation, no rebound, guarding or tenderness : Spontaneously voiding Psych: Normal mood and affect Skin: macular papular diffuse pink rash with noted borders, is pruritic in nature Results & Data Results & Data Vital Signs (Past 12 Hours) Vital Signs Temp Pulse Resp BP Pulse Ox O2 Del Method 08/14/23 17:19 87 19 08/14/23 17:19 136/80 08/14/23 17:10 130/74 04/02/24 17:10 86 08/14/23 17:00 128/86 08/14/23 17:00 82 25 H 96 08/14/23 16:50 81 18 97 08/14/23 16:45 130/87 08/14/23 16:45 85 27 H 99 08/14/23 16:40 84 30 H 98 08/14/23 16:30 85 26 H 98 08/14/23 16:30 136/76 08/14/23 16:20 85 34 H 95 08/14/23 16:15 129/80 08/14/23 16:15 75 14 96 08/14/23 16:10 79 16 96 08/14/23 16:03 131/81 08/14/23 16:03 83 21 96 08/14/23 16:00 84 20 98 08/14/23 15:58 79 08/14/23 15:58 98 Room Air 08/14/23 15:50 79 20 99 08/14/23 15:48 80 20 100 08/14/23 15:35 98 Room Air 08/14/23 15:29 36.6 C 87 20 130/84 99 Room Air Laboratory Results Abnormal lab results 08/14/23 08/14/23 08/14/23 Range/Units 15:36 17:52 18:11 WBC 12.94 H (4.8-10.8) K/ul Neut # (Auto) 11.12 H (1.40-6.50) K/uL Lymph # (Auto) 1.17 L (1.20-3.40) K/uL Activ Coag Time Kaolin 190 H 250 H (94-140) SECONDS Sodium 134 L (136-145) mmol/L Glucose 161 H (70-99(Fasting)) mg/dl Diagnostic Findings Chest X-Ray 08/14/23 15:49 XR chest 1V portable CLINICAL HISTORY: Chest pain, nonspecific COMPARISON STUDY: No previous studies for comparison. FINDINGS: No pneumothorax or pleural effusion is present. Lung volumes are mildly diminished. Mild interstitial prominence is noted. There are median sternotomy wires and clips from bypass grafting. Cardiomediastinal silhouette is stable. No consolidation is present. IMPRESSION: Interstitial prominence. This may be due to a hypoventilatory study. Pulmonary vascular congestion with mild pulmonary edema could appear similar. ACT 112: Negative or not required by law. Electronically signed by: Brandon Murillo M.D. 08/14/2023 4:05 PM Medications Administered Heparin Sodium/Dextrose (Heparin Sodium/Dextrose) 25,000 units in 500 mls @ 18 mls/hr IV .Q24H [facility]; Protocol Stop: 09/13/23 17:14 Last Admin: 08/14/23 16:56 Dose: 900 units/hr, 18 mls/hr Documented By: MARTI Co-signed By: MIGUELINA Discontinued Medications Diphenhydramine HCl (Diphenhydramine 50 Mg/Ml Vial) Confirm Administered Dose 50 mg .ROUTE .STK-MED ONE Stop: 08/14/23 17:11 Last Admin: 08/14/23 18:21 Dose: 50 mg Documented By: IDALIA Famotidine (Famotidine 20mg/5ml Iv Push) Confirm Administered Dose 20 mg IV .STK-MED ONE Stop: 08/14/23 17:11 Last Admin: 08/14/23 18:22 Dose: 20 mg Documented By: IDALIA Fentanyl Citrate (Fentanyl Citrate Pf 100 Mcg/2 Ml Vial) 50 mcg IV NOW STA Stop: 08/14/23 15:52 Last Admin: 08/14/23 16:00 Dose: 50 mcg Documented By: MARTI Fentanyl Citrate (Fentanyl Citrate Pf 100 Mcg/2 Ml Vial) Confirm Administered Dose 100 mcg .ROUTE .STK-MED ONE Stop: 08/14/23 17:05 Last Increment: 08/14/23 18:19 Dose: 50 mcg Documented By: IDALIA Heparin Sodium (Porcine) (Heparin Sod (Porcine) 1000 Unit/Ml) 4,000 units IV NOW ONE Stop: 08/14/23 17:03 Last Admin: 08/14/23 16:56 Dose: 4,000 units Documented By: MARTI Co-signed By: MIGUELINA Heparin Sodium (Porcine) (Heparin (Porcine) 1000 Unit/Ml 10 Ml (Office Executive Use Only)) Confirm Administered Dose 10,000 units .ROUTE .STK-MED ONE Stop: 08/14/23 17:05 Last Admin: 08/14/23 18:20 Dose: 3,000 units Documented By: IDALIA Heparin Sodium/Sodium Chloride (Heparin In Nss Infusion 1000 Unit/500 Ml (2 U/Ml) Bag) Confirm Administered Dose 3,000 units IV .STK-MED ONE Stop: 08/14/23 17:05 Last Admin: 08/14/23 18:20 Dose: 3,000 units Documented By: JARROD Ioversol (Optiray 350) Confirm Administered Dose 1 ml .ROUTE .STK-MED ONE Stop: 08/14/23 17:06 Last Admin: 08/14/23 18:21 Dose: 210 ml Documented By: JARROD Methylprednisolone (Methylprednisolone 125 Mg/2 Ml Vial) Confirm Administered Dose 125 mg .ROUTE .STK-MED ONE Stop: 08/14/23 17:11 Last Admin: 08/14/23 18:22 Dose: 125 mg Documented By: IDALIA Midazolam HCl (Midazolam Hcl 1 Mg/Ml 2ml Vial) Confirm Administered Dose 2 mg .ROUTE .STK-MED ONE Stop: 08/14/23 17:05 Last Admin: 08/14/23 18:21 Dose: 2 mg Documented By: IDALIA Nitroglycerin (Nitroglycerin Sl 0.4 Mg/Tab Tab) 0.4 mg SL NOW STA Stop: 08/14/23 15:52 Last Admin: 08/14/23 15:57 Dose: 0.4 mg Documented By: MARTI Nitroglycerin (Nitroglycerin 2% Ointment 30gm Tube) Confirm Administered Dose 18 inch EXT .STK-MED ONE Stop: 08/14/23 16:28 Last Admin: 08/14/23 16:29 Dose: 1 inch Documented By: MARTI ECG Additional Comments: 14-AUG-2023 15:53:22- Normal sinus rhythm Nonspecific ST abnormality Abnormal ECG When compared with ECG of 08-AUG-2023 14:10, ST now depressed in Anterior leads Coding Level of Care Code 98786 CRITICAL CARE 1ST 30-74M Diagnoses Chest pain R07.9 Rash R21 Acute non-ST elevation myocardial infarction (NSTEMI) I21.4 CAD (coronary artery disease) I25.10 Hyperlipidemia E78.5 Hypertension I10 Impaired fasting glucose R73.01
--- NOTE | 2023-08-14 18:53 | Post Operative Brief Note ---
Cardiology Brief Post Op Date of Surgery August 14, 2023 Pre & Post Diagnosis Operation Date: 08/14/23 17:05 <No data on this case meets the specified criteria> Procedure Ultrasound-guided vascular access Selective right and left coronary angiography Bypass graft angiography Aspiration coronary thrombectomy of bypass graft Angio-Seal closure Patient was brought to the cardiac catheterization suite where he was shaved and prepped in a sterile fashion. Sedated using IV Versed, fentanyl, and he was premedicated for potential contrast allergy with IV Solu-Medrol, Benadryl, and Pepcid. Soft tissues right groin were anesthetized using 10 mL 1% Xylocaine. Using ultrasound for guidance, the right femoral artery was identified and then accessed. A 6 [place] femoral artery sheath was placed. All catheters were advanced and exchanged over a 0.035 J-tip wire. Left coronary angiography in orthogonal views with a 5 [place] JL 4 diagnostic catheter. Right coronary angiography in orthogonal views with a 5 [place] JR4 diagnostic catheter FUENTES and SVG graft angiography were performed with a 5 [place] JR4 diagnostic catheter. Decision was made to attempt intervention of the SVG to OM. Diagnostic catheters were removed. ACT was checked and additional IV heparin was provided. 6 [place] JR4 guide catheter was used to engage the SVG. A BMW reversal guidewire was advanced through the guide catheter and positioned near the proximal edge of the recently placed stent. A Pronto LP aspiration catheter was advanced over the guidewire and used to perform multiple aspiration passes. There were numerous clots identified after aspiration. Pronto catheter was removed. Attempts to advance the BMW reversal guidewire beyond the proximal stent edge were unsuccessful. Initial BMW guidewire was then removed and a new BMW universal guidewire was advanced. Despite a different shape we could not pass the proximal edge of the stent. A PTCA balloon was then advanced over the guidewire to be used as backup support but we still could not advance beyond the proximal edge of the stent. Therefore the balloon and the guidewire were removed. Finally, we advanced a run-through guidewire but again could not pass beyond the proximal portion of the stent. Finally, we advanced the Pronto catheter again and performed additional aspiration. We then tried to advance the wire further but still could not traverse the proximal edge of the stent. It was evident that we would be unsuccessful in passing any equipment beyond the stent and therefore the procedure was terminated. Guidewire and aspiration catheter were removed. Final angiographic evaluation was performed. Guide catheter was removed over the J-wire. Limited right femoral artery angiography was performed to evaluate for closure. Findings were acceptable, therefore, the femoral artery sheath was exchanged for a 6 [place] Angio-Seal closure device. This was deployed in the recommended fashion. We obtained immediate hemostasis and the patient remained hem odynamically stable. He was then admitted to the intensive care unit. This ended the case. Diamond Grinder Oscar Harvey MD, PhD Oil Well Driller Modesto Sanchez Estimated Blood Loss 10 Findings [id number]-cbvxnsb. No significant disease. LAD-proximal 80% stenosis. Mid 30% stenosis. First diagonal with ostial 80% stenosis. Distal vessel with minimal disease and competitive flow noted. TSz-dgkrs-gkviwni. Proximal 20 to 30% stenosis. The OM1 and OM 2 and posterolateral branch have no disease. There is an OM 3 with ostial 100% stenosis. No change from previous. RCA-large caliber and branching. Dominant vessel. PDA without disease. Right posterior lateral branch without disease. FUENTES to LAD-medium to large caliber and widely patent. Distal anastomosis on the distal LAD. No disease. SVG to LW-tjqef-pxfmdcu. 100% thrombotic occlusion in the proximal segment plus or minus dissection/streaming. INDY 0 flow. Aspiration thrombectomy SVG to OM-we were able to aspirate a good deal of clot but ultimately we were unable to restore flow through the stented portion of the vein graft. Anesthesia Type RN Sedation Complications none [facility] Cardiac Procedure Charge Indication for Procedure Indication for procedure: Non-ST elevation MA
[2023-08-14 19:23] LABS: Basophils # (auto) 0.01 K/uL (0.00-0.20); Basophils % (auto) 0.1 %; Eosinophils # (auto) 0.08 K/uL (0.00-0.50); Eosinophils % (auto) 0.6 %; Hematocrit (blood only) 45.7 % (42.0-52.0); Hemoglobin 15.8 g/dl (14.0-18.0); Immature Granulocytes # (auto) 0.06 K/uL (0.01-0.20); Immature Granulocytes % (auto) 0.5 %; Lymphocytes # (auto) 0.78 K/uL (1.20-3.40); Lymphocytes % (auto) 6.3 %; Mean Corpuscular Hemoglobin 32.6 pg (25.0-34.0); Mean Corpuscular Hgb Conc 34.6 g/dL (32.0-36.0); Mean Corpuscular Volume 94.2 fL (80.0-100.0); Mean Platelet Volume 9.8 fL (9.4-12.4); Monocytes # (auto) 0.34 K/uL (0.11-0.59); Monocytes % (auto) 2.7 %; Neutrophils # (auto) 11.19 K/uL (1.40-6.50); Neutrophils % (auto) 89.8 %; Platelet Count 158 K/uL (130-400); RDW Coefficient of Variation 11.5 % (11.5-14.5); RDW Standard Deviation 39.6 fL (36.4-46.3); Red Blood Count 4.85 M/uL (4.70-6.10); White Blood Count 12.46 K/ul (4.8-10.8)
[2023-08-14] MEDS: niCARdipine HCL INJ 2.5 MG/ML 10 ML AMP ONE (19:48)
[2023-08-14] MEDS: NITROGLYCERIN/D5W 100MCG/ML 20ML SYR ONE (19:48)
[2023-08-14] MEDS: ATROPINE SULFATE 0.1 MG/ML 10ML SYR IV ONE (19:48)
[2023-08-14] MEDS ORDERED: STAT IV Infusion **Titration per Protocol STA (19:54)
[2023-08-14] MEDS: NITROGLYCERIN/D5W 100MCG/ML 250 ML IV SCH (20:11)
[2023-08-14] MEDS: SODIUM CHLORIDE 0.9% 1,000 ML IV SCH (20:12)
[2023-08-14] MEDS: ICU Protocol for HYPERglycemia SCH (20:19)
[2023-08-14] MEDS: MoRPHine SULFATE 2 MG/ML CARP IV PRN (20:23)
[2023-08-14] MEDS: ACETAMINOPHEN 325 MG TAB PO PRN (23:36)
[2023-08-15 00:40] LABS: ANTI-Xa, UFH(UnfractionatedHep 0.87 IU/ml (0.3-0.7)
[2023-08-15 01:34] LABS: ANTI-Xa, UFH(UnfractionatedHep 0.75 IU/ml (0.3-0.7)
[2023-08-15 02:13] LABS: Hematocrit (blood only) 42.7 % (42.0-52.0); Hemoglobin 15.4 g/dl (14.0-18.0); Mean Corpuscular Hemoglobin 33.6 pg (25.0-34.0); Mean Corpuscular Hgb Conc 36.1 g/dL (32.0-36.0); Mean Platelet Volume 9.6 fL (9.4-12.4); Platelet Count 152 K/uL (130-400); RDW Coefficient of Variation 11.8 % (11.5-14.5); RDW Standard Deviation 40.4 fL (36.4-46.3); Red Blood Count 4.59 M/uL (4.70-6.10); White Blood Count 14.68 K/ul (4.8-10.8)
[2023-08-15 02:34] LABS: BUN Creatinine Ratio 15.5 (10-20); Creatinine Clr Calc Pharmacy 67.7 ml/min; Est GFR (African American) 77.9 ml/min; Est GFR (Non-African American) 67.2 ml/min; Phosphorus 2.8 mg/dl (2.5-4.9)
[2023-08-15 03:13] LABS: Basophils # (auto) 0.02 K/uL (0.00-0.20); Basophils % (auto) 0.1 %; Eosinophils # (auto) 0.01 K/uL (0.00-0.50); Eosinophils % (auto) 0.1 %; Immature Granulocytes # (auto) 0.06 K/uL (0.01-0.20); Immature Granulocytes % (auto) 0.4 %; Lymphocytes # (auto) 0.76 K/uL (1.20-3.40); Lymphocytes % (auto) 5.2 %; Monocytes # (auto) 0.14 K/uL (0.11-0.59); Neutrophils # (auto) 13.69 K/uL (1.40-6.50); Neutrophils % (auto) 93.2 %; RBC Morphology Unremarkable
[2023-08-15] MEDS: LORATADINE 10 MG TAB PO SCH (07:31)
[2023-08-15] MEDS: predniSONE 20 MG TAB PO SCH (07:31)
[2023-08-15] MEDS: ROSUVASTATIN CALCIUM 10 MG TAB PO SCH (07:31)
[2023-08-15] MEDS: GLUCOSAMINE SULFATE 500 MG CAP PO SCH (07:31)
[2023-08-15] MEDS: METOPROLOL SUCC 50MG EXT REL TAB PO SCH (07:32)
[2023-08-15] MEDS: OMEGA-3 (PURIFIED FISH OIL) 1 GM CAP PO SCH (07:32)
[2023-08-15] MEDS: MULTIVITAMIN TAB PO SCH (07:33)
[2023-08-15] MEDS: ASPIRIN 81 MG ECTAB PO SCH (07:33)
[2023-08-15] MEDS: TICAGRELOR 90 MG TAB PO SCH (07:45)
--- NOTE | 2023-08-15 07:59 | Hospitalist Progress Note ---
Date of Service August 15, 2023 Assessment & Plan (1) ST elevation (STEMI) myocardial infarction: Plan: 73 y/o man with CAD and CABGx2 in 2010, recent NSTEMI 08/08 with JEANNINE of SVG to OM3 discharged on DAPT with ASA, Plavix as well as rosuvastatin and metoprolol. Presented with severe chest pain and dynamic EKG changes which worsened in the ED eventually developing VASU in V5 and V6 and taken emergently to the r&d lab technician. Thrombosis of the JEANNINE to SVG was found and aspiration thrombectomy performed with significant amount of clots removed, however, unable to pass guidewire past stent despite multiple attempts and blood flow was not restored to the stent. Loaded on Brilinta. Chest pain following procedure treated with nitroglycerin drip and morphine. -Echo - reviewed - nl EF, distal posterolateral and apical hypokinesis to akinesis c/w OM3 territory HI otherwise unchanged -trending trop 14 --> 25640 --> 33K --> 33K -EKG this AM without ST elevation -continue DAPT with ASA, Brilinta -heparin drip for 24h post procedure - will continue to AM because of ongoing CP and rising trop -metoprolol succinate 50 mg, rosuvastatin -increased morphine to 4 mg IV prn, started Imdur 30 mg for chest pain, continue PPI. If this ineffective can try resuming nitro drip. Discussed with bedside RN, she has also communicated with manager strategic marketing regarding CP (2) CAD (coronary artery disease): Plan: see above (3) Rash: Plan: Diffuse pruritic maculopapular rash, history of latex/adhesive allergy Denies new topical/skin exposures though started with adhesive from prior admission. Allergies coincides with both potential latex exposure, in addition to Plavix his only new medication Diffuse pruritic, blanching tender papular rash. Does not appear vasculitic and no thrombocytopenia or renal failure to suggest TTP Continue steroids, prednisone 40 mg daily, hydroxyzine 3 times daily, topical hydrocortisone Mild leukocytosis without left shift, no eosinophilia is noted (4) Hyperlipidemia: Plan: Hyperlipidemia Continue rosuvastatin (5) Hypertension: Plan: Hypertension Continue beta-sofya Plan CKD stage 2 - Cr stable IgG lambda MGUS UPEP negative for M spike, no anemia/hypercalcemia/renal insufficiency due to able to myeloma on prior follow-ups DVT ppx - currently on heparin drip Admission and Anticipated Discharge Date Admission Date: August 14, 2023 Subjective Chest pain significantly improved compared to yesterday, did have some mild chest pressure this AM after stopping nitro drip which was causing headache. No dyspnea Throughout day continued to have SSCP not relieved by prevacid, morphine 2 mg or SL NTG Physical Exam 2 Physical Exam: PHYSICAL EXAMINATION Last 24h vital signs reviewed, see documentation in flowsheet General: comfortable appearing, no distress HEENT: Normocephalic, atraumatic, pupils round and equal, sclerae anicteric, no conjunctival injection, moist mucus membranes Lungs: Normal respiratory effort. Clear to auscultation bilaterally. No RRW Heart: Regular rate and rhythm, no murmurs. No JVD Abdomen: Soft, nontender, nondistended. Bowel sounds present. Extremities: Warm, dry, well-perfused. No extremity edema. R groin site cdi without swelling/hematoma or bruit Neuro: Alert and oriented x 4, face symmetric, moves 4 extremities well Psych: Normal affect and behavior Results & Data Results & Data Vital Signs (Past 12 Hours) Vital Signs Temp Pulse Resp BP Pulse Ox Pulse Ox O2 Del Method 08/15/23 06:15 91 H 12 93 08/15/23 06:15 101/63 08/15/23 06:00 36.6 C 08/15/23 06:00 90 12 92 08/15/23 06:00 94/63 L 08/15/23 05:45 105/60 08/15/23 05:45 86 10 L 93 08/15/23 05:30 100/62 08/15/23 05:30 100/62 08/15/23 05:30 88 11 L 92 08/15/23 05:15 93 H 17 93 08/15/23 05:15 99/62 L 08/15/23 05:00 88 12 92 08/15/23 05:00 89/66 L 08/15/23 05:00 89/66 L 08/15/23 04:45 88 9 L 92 08/15/23 04:45 101/61 08/15/23 04:30 87 15 92 08/15/23 04:30 101/63 08/15/23 04:15 86 10 L 92 08/15/23 04:15 96/62 L 08/15/23 04:00 104/63 08/15/23 04:00 88 12 91 08/15/23 03:45 105/64 08/15/23 03:45 91 H 12 93 08/15/23 03:30 85 9 L 93 08/15/23 03:30 104/61 08/15/23 03:15 85 14 92 08/15/23 03:15 100/63 08/15/23 03:00 98/60 L 08/15/23 03:00 85 10 L 91 08/15/23 02:45 85 10 L 91 08/15/23 02:45 103/65 08/15/23 02:30 81 12 91 08/15/23 02:30 99/60 L 08/15/23 02:15 84 11 L 90 08/15/23 02:15 107/61 08/15/23 02:00 80 11 L 91 08/15/23 02:00 107/62 08/15/23 01:45 84 10 L 91 08/15/23 01:45 108/60 08/15/23 01:30 102/60 08/15/23 01:30 87 9 L 90 08/15/23 01:15 84 13 90 08/15/23 01:15 108/62 08/15/23 01:00 108/62 08/15/23 01:00 82 14 91 08/15/23 00:45 87 11 L 91 08/15/23 00:45 104/69 08/15/23 00:30 111/68 08/15/23 00:30 86 8 L 92 08/15/23 00:15 86 18 91 08/15/23 00:15 106/68 08/15/23 00:15 106/68 08/15/23 00:00 36.6 C 08/15/23 00:00 85 08/15/23 00:00 86 19 92 08/15/23 00:00 103/66 08/15/23 00:00 103/66 08/14/23 23:45 88 10 L 92 08/14/23 23:45 112/70 08/14/23 23:30 100/59 L 08/14/23 23:30 89 16 91 08/14/23 23:15 98/67 L 08/14/23 23:15 98/67 L 08/14/23 23:15 89 15 91 08/14/23 23:00 110/69 08/14/23 23:00 85 12 91 08/14/23 22:45 89 31 H 94 08/14/23 22:30 85 13 91 08/14/23 22:30 113/69 08/14/23 22:30 113/69 08/14/23 22:15 114/69 08/14/23 22:15 85 13 92 08/14/23 22:00 117/73 08/14/23 22:00 117/73 08/14/23 22:00 117/73 08/14/23 22:00 86 12 92 08/14/23 21:45 83 12 92 08/14/23 21:45 113/73 08/14/23 21:30 86 13 92 08/14/23 21:30 110/71 08/14/23 21:15 115/72 08/14/23 21:15 81 15 92 08/14/23 21:00 120/70 08/14/23 21:00 89 27 H 93 08/14/23 20:45 125/76 08/14/23 20:45 125/76 08/14/23 20:45 88 11 L 93 08/14/23 20:30 81 16 92 08/14/23 20:30 114/74 08/14/23 20:30 114/74 08/14/23 20:15 122/79 08/14/23 20:15 82 14 95 08/14/23 20:00 94 Room Air 08/14/23 20:00 92 Room Air 08/14/23 20:00 79 13 97 08/14/23 20:00 121/77 08/14/23 20:00 121/77 Laboratory Results 08/15/23 02:04 08/15/23 02:04 PG Care Time/CCT Total # of Minutes Spent Total Time Spent with Patient: Total time spent is greater than 50% in coordination of care (as documented) at patient's floor/unit and/or counseling patient: Coding Level of Care Code 38504 SUB INP/OBS CARE 3/50MIN Diagnoses ST elevation (STEMI) myocardial infarction I21.3 CAD (coronary artery disease) I25.10 Rash R21 Hyperlipidemia E78.5 Hypertension I10
[2023-08-15 08:03] LABS: ANTI-Xa, UFH(UnfractionatedHep 0.59 IU/ml (0.3-0.7)
[2023-08-15] MEDS ORDERED: ASPIRIN 81 MG ECTAB PO SCH (09:00)
--- NOTE | 2023-08-15 09:02 | Critical Care Progress Note ---
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 To ICU post procedure on heparin infusion. Neuro - No acute needs CAM ICU: NEGATIVE Cardiac - STEMI, Acute occlusion of stented artery-SVG OM3, Hx CABG, HLD, HTN - Post clot removal to stent recently placed on 08/08/23 SVG OM3 - Follow RIGHT groin access sit- neuro and CV checks - Antiplatelet medications per cardiology- Heparin infusion x48 hours - Transition to DAPT per cardiology when appropriate - Chest Pain resolved. D/C nitro gtt - Continue statin - Continue BB as hemodynamics allow - Obtain echo Respiratory - NO acute needs GI - GERD - Continue PPI RENAL/LYTES - Hx CKD - No acute needs ENDO - No acute needs HEME - No acute needs ID - No concern for acute infections SKin: Rash DDX: Contact dermatitis vs. reaction to adhesives/leads vs. medication rash vs. other - He is without wheezing, itchy eyes, or - Renal function normal - No ulcerations in mouth and no desquamation - Favor a contact dermatitis from adhesives at this time- continue with steroids orally, topical, and hydroxyzine for itching. LINES/IV ACCESS - PIV, Continue use of these lines DVT PROPHYLAXIS - SCDS, Heparin infusion DISPO: No further ICU needs. Critical care services to sign off. Please call with questions. Admission and Anticipated Discharge Date Admission Date: August 14, 2023 Subjective No acute issues today. He does have a mild headache. Nitroglycerin drip will be discontinued. He denies any chest pain or sob. Review of Systems Review of Systems: All systems reviewed & are unremarkable except as noted in HPI & below Physical Exam Physical Exam: PHYSICAL EXAM: General: awake, alert, still little groggy following sedation, but appropriate Head: Normocephalic, atraumatic ENT: PERRLA, EOMI, no pharyngeal exudate, mucous membranes moist Neuro: AAO x 3, speech clear and appropriate, strength intact bilaterally 5/5, sensation intact and equal all extremities and dermatomes, no pronator drift Chest: equal rise and fall of the chest, no accessory muscle use, no heaves or thrills, Clear to auscultation, on room air, Cardiac: Regular rate and rhythm, telemetry reviewed-NSR, skin warm dry, cap refill <3 seconds, peripheral pulses +2 no JVD, no murmur, no edema GI: NABS x 4 quadrants, soft, nontender to palpation, no rebound, guarding or tenderness : Spontaneously voiding Psych: Normal mood and affect Skin: macular papular diffuse pink rash with noted borders, is pruritic in nature Results & Data Results & Data Vital Signs (Past 12 Hours) Vital Signs Temp Pulse Resp BP Pulse Ox O2 Del Method 08/15/23 08:00 94 H 22 108/72 92 Room Air 08/15/23 08:00 36.5 C 08/15/23 08:00 90 08/15/23 07:30 94 H 17 111/74 94 Room Air 08/15/23 07:00 95 H 15 111/69 96 Room Air 08/15/23 06:15 91 H 12 93 08/15/23 06:15 101/63 08/15/23 06:00 36.6 C 08/15/23 06:00 90 12 92 08/15/23 06:00 94/63 L 08/15/23 05:45 105/60 08/15/23 05:45 86 10 L 93 08/15/23 05:30 100/62 08/15/23 05:30 100/62 08/15/23 05:30 88 11 L 92 08/15/23 05:15 93 H 17 93 08/15/23 05:15 99/62 L 08/15/23 05:00 88 12 92 08/15/23 05:00 89/66 L 08/15/23 05:00 89/66 L 08/15/23 04:45 88 9 L 92 08/15/23 04:45 101/61 08/15/23 04:30 87 15 92 08/15/23 04:30 101/63 08/15/23 04:15 86 10 L 92 08/15/23 04:15 96/62 L 08/15/23 04:00 104/63 08/15/23 04:00 88 12 91 08/15/23 03:45 105/64 08/15/23 03:45 91 H 12 93 08/15/23 03:30 85 9 L 93 08/15/23 03:30 104/61 08/15/23 03:15 85 14 92 08/15/23 03:15 100/63 08/15/23 03:00 98/60 L 08/15/23 03:00 85 10 L 91 08/15/23 02:45 85 10 L 91 08/15/23 02:45 103/65 08/15/23 02:30 81 12 91 08/15/23 02:30 99/60 L 08/15/23 02:15 84 11 L 90 08/15/23 02:15 107/61 08/15/23 02:00 80 11 L 91 08/15/23 02:00 107/62 08/15/23 01:45 84 10 L 91 08/15/23 01:45 108/60 08/15/23 01:30 102/60 08/15/23 01:30 87 9 L 90 08/15/23 01:15 84 13 90 08/15/23 01:15 108/62 08/15/23 01:00 108/62 08/15/23 01:00 82 14 91 08/15/23 00:45 87 11 L 91 08/15/23 00:45 104/69 08/15/23 00:30 111/68 08/15/23 00:30 86 8 L 92 08/15/23 00:15 86 18 91 08/15/23 00:15 106/68 08/15/23 00:15 106/68 08/15/23 00:00 36.6 C 08/15/23 00:00 85 08/15/23 00:00 86 19 92 08/15/23 00:00 103/66 08/15/23 00:00 103/66 08/14/23 23:45 88 10 L 92 08/14/23 23:45 112/70 08/14/23 23:30 100/59 L 08/14/23 23:30 89 16 91 08/14/23 23:15 98/67 L 08/14/23 23:15 98/67 L 08/14/23 23:15 89 15 91 08/14/23 23:00 110/69 08/14/23 23:00 85 12 91 08/14/23 22:45 89 31 H 94 08/14/23 22:30 85 13 91 08/14/23 22:30 113/69 08/14/23 22:30 113/69 08/14/23 22:15 114/69 08/14/23 22:15 85 13 92 08/14/23 22:00 117/73 08/14/23 22:00 117/73 08/14/23 22:00 117/73 08/14/23 22:00 86 12 92 08/14/23 21:45 83 12 92 08/14/23 21:45 113/73 08/14/23 21:30 86 13 92 08/14/23 21:30 110/71 08/14/23 21:15 115/72 08/14/23 21:15 81 15 92 08/14/23 21:00 120/70 08/14/23 21:00 89 27 H 93 Coding Level of Care Code 90181 SUB INP/OBS CARE 06/07MIN Diagnoses Chest pain R07.9 Rash R21 Acute non-ST elevation myocardial infarction (NSTEMI) I21.4 CAD (coronary artery disease) I25.10 Hyperlipidemia E78.5 Hypertension I10 Impaired fasting glucose R73.01
[2023-08-15] MEDS: PANTOprazole 40 MG in SYRINGE 0 ML IV SCH (09:57)
[2023-08-15] MEDS: NITROGLYCERIN SL 0.4 MG/TAB TAB SL PRN (11:55)
[2023-08-15] MEDS: hydrOXYzine HCl 25 MG TAB PO PRN (14:59)
[2023-08-15] MEDS: HYDROCORTISONE 1% CRM 30 GM TUBE EXT PRN (14:59)
[2023-08-15] MEDS: ISOSORBIDE MONO EXTENDED REL 30 MG TABCR PO SCH (17:46)
[2023-08-15 18:46] LABS: Basophils # (auto) 0.05 K/uL (0.00-0.20); Basophils % (auto) 0.2 %; Eosinophils # (auto) 0.01 K/uL (0.00-0.50); Hematocrit (blood only) 45.6 % (42.0-52.0); Hemoglobin 15.6 g/dl (14.0-18.0); Immature Granulocytes # (auto) 0.13 K/uL (0.01-0.20); Immature Granulocytes % (auto) 0.6 %; Lymphocytes % (auto) 3.8 %; Mean Corpuscular Hemoglobin 33.1 pg (25.0-34.0); Mean Corpuscular Hgb Conc 34.2 g/dL (32.0-36.0); Mean Corpuscular Volume 96.6 fL (80.0-100.0); Mean Platelet Volume 9.9 fL (9.4-12.4); Monocytes # (auto) 1.14 K/uL (0.11-0.59); Monocytes % (auto) 5.4 %; Neutrophils # (auto) 18.98 K/uL (1.40-6.50); Platelet Count 162 K/uL (130-400); RDW Standard Deviation 43.1 fL (36.4-46.3); Red Blood Count 4.72 M/uL (4.70-6.10); White Blood Count 21.11 K/ul (4.8-10.8)
[2023-08-15] MEDS: LANSOPRAZOLE 30 MG SOLTAB SL SCH (20:19)
[2023-08-15] MEDS: MoRPHine SULFATE 2 MG/ML CARP IV PRN (20:23)
[2023-08-16 04:54] LABS: Basophils # (auto) 0.04 K/uL (0.00-0.20); Basophils % (auto) 0.2 %; Eosinophils # (auto) 0.11 K/uL (0.00-0.50); Eosinophils % (auto) 0.6 %; Hematocrit (blood only) 43.7 % (42.0-52.0); Immature Granulocytes # (auto) 0.11 K/uL (0.01-0.20); Immature Granulocytes % (auto) 0.6 %; Lymphocytes # (auto) 1.29 K/uL (1.20-3.40); Lymphocytes % (auto) 6.9 %; Mean Corpuscular Hemoglobin 33.1 pg (25.0-34.0); Mean Corpuscular Hgb Conc 34.3 g/dL (32.0-36.0); Mean Corpuscular Volume 96.5 fL (80.0-100.0); Mean Platelet Volume 9.8 fL (9.4-12.4); Monocytes # (auto) 1.66 K/uL (0.11-0.59); Monocytes % (auto) 8.9 %; Neutrophils # (auto) 15.37 K/uL (1.40-6.50); Neutrophils % (auto) 82.8 %; Platelet Count 150 K/uL (130-400); RDW Coefficient of Variation 12.3 % (11.5-14.5); RDW Standard Deviation 43.5 fL (36.4-46.3); Red Blood Count 4.53 M/uL (4.70-6.10); White Blood Count 18.58 K/ul (4.8-10.8)
[2023-08-16 05:01] LABS: BUN Creatinine Ratio 15.4 (10-20); Calcium 9.1 mg/dl (8.6-10.3); Est GFR (African American) 72.3 ml/min; Est GFR (Non-African American) 62.4 ml/min; Phosphorus 2.1 mg/dl (2.5-4.9); Potassium 4.3 mmol/L (3.5-5.1)
[2023-08-16 05:19] LABS: ANTI-Xa, UFH(UnfractionatedHep 0.31 IU/ml (0.3-0.7)
[2023-08-16 05:36] LABS: Troponin I High Sensitivity 45226.3 pg/ml (0-20)
[2023-08-16] MEDS ORDERED: LANSOPRAZOLE 30 MG SOLTAB SL SCH (09:00)
--- NOTE | 2023-08-16 13:20 | Cardiac Catheterization ---
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: Screener Operator Cardiac Status Clinical evaluation leading to the procedure CAD Presenation: STEMI Anginal Classification: CCS IV Heart Failure: No Cardiogenic Shock within 24 Hours: No Cardiac Arrest within 24 Hours: No Imaging Studies Past 6 Months: Yes STEMI OR Non-STEMI Symptom Onset Date: 08/14/23 Coronary Anatomy Dominant: Right Left Main (% Stenosis): Normal LAD (% Stenosis): Proximal (80%) and Mid (30%) D1 (% Stenosis): Ostial (80%) Circumflex (% Stenosis): Proximal (20 to 30%) OM1 (% Stenosis): Normal OM2 (% Stenosis): Normal OM3 (% Stenosis): Ostial (100%) L PL1 (% Stenosis): Normal RCA (% Stenosis): Normal R PDA (% Stenosis): Normal R PL1 (% Stenosis): Normal Grafts - LAD (%): Normal Grafts - Circumflex (%): Proximal (100%) Diagnostic Physicians Name: Oscar Harvey MD, PhD Closure Device Percutaneous Entry Location: Femoral Closure Device: Angio-Seal Recommendations: Medical Therapy and/or Counseling PCI Indication: PCI for STEMI - Stable Lesion Segment Name: Proximal SVG Culprit Artery: Yes Chronic Total Occlusion: No Pre-Procedure INDY Flow: 0 Previously Treated Lesion: Yes Lesion Complexity: High/C Lesion Length (mm): 50 mm Thrombus Present: Yes Bifurcation Lesion: No Guidewire Across Lesion: Yes Intraprocedure Events Significant Disection: No (Possible) Perforation: No Cardiac Cath Procedure Full Procedure Date August 16, 2023 Pre-Procedure Diagnosis Pre-Procedure Diagnosis: STEMI (Lateral) AUC Score AUC Score: 9 Post-Procedure Diagnosis Post-Procedure Diagnosis: Severe CAD and Unsuccessful PCI Procedure(s) Performed Procedure(s) Performed: Coronary Angiography, Aspiration Thrombectomy and Ultrasound Guided Vascular Access Automotive Fuel Injection Servicer Oscar Harvey MD, PhD Estimated Blood Loss Estimated Blood Loss: 10 cc Medication(s) Medication(s): Diphenhydramine, Fentanyl, Heparin, Lidocaine 1% and Versed Summary of Findings Brief description: Patient was brought to the cardiac catheterization suite where he was shaved and prepped in a sterile fashion. Sedated using IV Versed and fentanyl. Soft tissues of the right groin were anesthetized using 10 mL of 1% Xylocaine. Using the ultrasound for guidance (image saved), the right femoral artery was accessed and a 6 [place] femoral artery sheath was placed. All catheters were advanced and exchanged over a 0.035 J-tip wire. Left coronary angiography performed in orthogonal views with a 5 [place] JL 4 diagnostic catheter. Right coronary angiography in orthogonal views with a 5 [place] JR4 diagnostic catheter. FUENTES to LAD and SVG to OM angiography were performed with a 5 [place] JR4 diagnostic catheter. Decision was made to attempt PCI of the SVG to OM. ACT was intermittently checked and additional heparin was provided as needed to maintain therapeutic anticoagulation 6 [place] JR4 guide catheter was used to engage the ostium of the SVG to OM. Through this a BMW guidewire was advanced to the level of the previous stent. There was a large clot burden and therefore we first attempted aspiration thrombectomy using a Pronto LP aspiration catheter and multiple aspiration runs. We then tried to advance the guidewire through the stented segment but were unsuccessful. The Pronto catheter and guidewire were removed. The guidewire was reshaped and reinserted. It also would not cross the stented segment. We therefore added a 2.5 x 12 mm trek PTCA balloon to use as backup to help direct the wire but this was unfortunately unsuccessful. The balloon was removed. The guidewire was also removed and exchanged for a run-through coronary guidewire. Despite multiple attempts to cross the lesion we were unable to pass the stented segment. Eventually it became evident that this would not be a successful endeavor and that we increased our risk for additional complications. Therefore additional attempts to pass the lesion were abandoned. Fortunately, the bypass is known to serve an OM 3 which has a relatively limited myocardial distribution. Final angiography was performed. The guide catheter was then removed. Mid right femoral artery angiography was performed to evaluate for closure. Findings were favorable, therefore, the femoral artery sheath was exchanged for a 6 [place] Angio-Seal closure device. This was deployed in the recommended fashion. We obtained immediate hemostasis and the patient remained hemodynamically stable. He was returned to the recovery area. This ended the case. Coronary angiography findings: KSN-bfoet-uzdwhsr vessel bifurcating into LAD and circumflex. No significant disease. LAD-diffuse disease with proximal 80% narrowing, mid 30% narrowing, and distal competitive flow from FUENTES bypass. There is a first diagonal with ostial to proximal 80% narrowing. CVa-wunsx-xfgdhic and probably nondominant. Travels in the AV groove there is a small high rising OM1 followed by a small OM 2. Distally the vessel terminates as a medium caliber posterolateral branch. Scattered less than 30% lesions in the circumflex and its branches. (Prior report states OM 3 100% occluded at ostium) LKQ-orpxb-uikagdj and dominant. Bifurcates distally into the PDA and the posterolateral branch. These vessels are large in the RCA and its branches have no angiographically significant disease. FUENTES to LAD-medium to large in caliber. Distal anastomosis on the distal LAD. The graft itself is widely patent. There is competitive flow after the anastomosis in the tribe LAD. No change from prior. SVG to OM 3-is a very large caliber vein graft. Proximal segment with diffuse thrombosis and haziness. Mid segment is occluded and the prior stent in the mid to distal segment is occluded. INDY 0 flow. After aspiration thrombectomy the stented segment remains thrombosed. The proximal to mid segment with severe flow reduction. Summary: 1. [place] vessels and FUENTES to LAD are unchanged from prior coronary angiography. 2. New recurrent occlusion of the SVG to OM 3. Successful aspiration thrombectomy but unable to perform PCI/stenting. Suspect vein graft dissection and unable to find the true lumen with a guidewire. 3. Patient should be placed on heparin drip for 48 hours. Continue aspirin and return to Brilinta 90 mg p.o. twice daily. (Apparent rash could be secondary to Plavix). 4. Patient shall remain in the ICU. Hemodynamics Rest Ao:: 96/36 mmHg Final Ao: 142/44 mmHg LV: Not performed Recommendations Recommendations: Medical Therapy and/or Counseling Radiation Exposure (mGy) 1915 mGy, fluoroscopy time 16.9 minutes Contrast (mls) 110 mL Anesthesia 2 mg Versed IV, 50 mcg fentanyl IV. Start 173, End 1820 Procedural Complication(s) None Disposition ICU I attest to the content of the Intraoperative Record and any orders documented therein. Any exceptions are noted below. [facility] [place] Codes Cardiac Catheterization Procedure 1: Cardiovascular Cath Procedures: 47796 Coronaries and Grafts/IM (venous & atrial) Therapeutic Services & Ancillary Procedure 1: Cardiovascular Tx and Anc Procedures: 94807 Ultrasonic Guidance Vascular Access Procedure 2: Cardiovascular Tx and Anc Procedures: 57639 Perc Coronary Thrombectomy (SVG to OM) Moderate Sedation Procedure 1: Sedation/Anesthesia: 88870 Mod Sedation by the same physician;Init15 Min Child Age 5 & Up (Initial 15-minute, start 1736) Procedure 2: Sedation/Anesthesia: 38186 Mod Sedation by the same physician; Ea [id number] Minutes (Additional 29-minute, and 1820) PG Care Time/CCT Total # of Minutes Spent Total Time Spent with Patient: Total time spent is greater than 50% in coordination of care (as documented) at patient's floor/unit and/or counseling patient:
--- NOTE | 2023-08-16 14:49 | Hospitalist Progress Note ---
Date of Service August 16, 2023 Assessment & Plan (1) ST elevation (STEMI) myocardial infarction: Plan: 73 y/o man with CAD and CABGx2 in 2010, recent NSTEMI 08/08 with JEANNINE of SVG to OM3 discharged on DAPT with ASA, Plavix as well as rosuvastatin and metoprolol. Presented with severe chest pain and dynamic EKG changes which worsened in the ED eventually developing VASU in V5 and V6 and taken emergently to the union laborer. Thrombosis of the JEANNINE to SVG was found and aspiration thrombectomy performed with significant amount of clots removed, however, unable to pass guidewire past stent despite multiple attempts and blood flow was not restored to the stent. Loaded on Brilinta. Chest pain following procedure treated with nitroglycerin drip and morphine. -Echo - nl EF, distal posterolateral and apical hypokinesis to akinesis c/w OM3 territory NE otherwise unchanged -trending trop 14 --> 67216 --> 33K --> 33K --> 44, 45K -continue DAPT with ASA, Brilinta -heparin drip post procedure - stopped this AM -metoprolol succinate 50 mg, rosuvastatin, imdur 30 mg might be helping chest pain but possibly causing headache -discussed with Dr. Harvey - recommends monitoring in hosp another 48h because of risk of early NE complications (2) CAD (coronary artery disease): Plan: see above (3) Rash: Plan: Diffuse pruritic maculopapular rash, history of latex/adhesive allergy Denies new topical/skin exposures though started with adhesive from prior admission. Allergies coincides with both potential latex exposure, in addition to Plavix his only new medication Diffuse pruritic, blanching tender papular rash. Does not appear vasculitic and no thrombocytopenia or renal failure to suggest TTP Continue steroids, prednisone - decrease to 20 mg daily, hydroxyzine 3 times daily, topical hydrocortisone Mild leukocytosis without left shift, no eosinophilia is noted 4/4 substantial improvement in rash (4) Hyperlipidemia: Plan: Hyperlipidemia Continue rosuvastatin (5) Hypertension: Plan: Hypertension Continue beta-sofya Plan CKD stage 2 - Cr stable IgG lambda MGUS UPEP negative for M spike, no anemia/hypercalcemia/renal insufficiency due to able to myeloma on prior follow-ups DVT ppx - was on heparin drip, now DAPT and ambulatory Admission and Anticipated Discharge Date Admission Date: August 14, 2023 Subjective feels much better. no chest pain or dyspnea today headache after getting morphine last night rash substantially faded since yesterday Physical Exam 2 Physical Exam: PHYSICAL EXAMINATION Last 24h vital signs reviewed, see documentation in flowsheet General: comfortable appearing, no distress, sitting in chair HEENT: Normocephalic, atraumatic, pupils round and equal, sclerae anicteric, no conjunctival injection, moist mucus membranes Lungs: Normal respiratory effort. Clear to auscultation bilaterally. No RRW Heart: Regular rate and rhythm, no murmurs. No JVD Abdomen: Soft, nondistended. Bowel sounds present. Extremities: Warm, dry, well-perfused. No extremity edema. R groin site cdi without swelling/hematoma Skin: rash significantly improved - face/neck no longer red, no new lesions on arms/legs or trunk and substantial fading and flattening Neuro: Alert and oriented x 4, face symmetric, moves 4 extremities well Psych: Normal affect and behavior Results & Data Results & Data Vital Signs (Past 12 Hours) Vital Signs Temp Pulse Resp BP BP Pulse Ox O2 Del Method 08/16/23 09:43 36.8 C 16 98/60 L 98 Room Air 08/16/23 08:00 79 08/16/23 05:45 71 14 91 08/16/23 05:30 82/56 L 08/16/23 05:30 77 13 92 08/16/23 05:15 75 13 89 L 08/16/23 05:00 95/57 L 08/16/23 05:00 76 13 91 08/16/23 04:45 78 18 89 L 08/16/23 04:30 81 15 91 08/16/23 04:30 100/54 L 08/16/23 04:15 72 15 93 08/16/23 04:00 87/57 L 08/16/23 04:00 85 12 92 08/16/23 03:45 83 15 91 08/16/23 03:30 74 15 90 08/16/23 03:30 99/56 L 08/16/23 03:15 74 14 92 08/16/23 03:00 99/57 L 08/16/23 03:00 78 16 90 08/16/23 02:45 73 15 92 Laboratory Results 08/16/23 04:20 08/16/23 04:20 PG Care Time/CCT Total # of Minutes Spent Total Time Spent with Patient: Total time spent is greater than 50% in coordination of care (as documented) at patient's floor/unit and/or counseling patient: Coding Level of Care Code 72032 SUB INP/OBS CARE 2/35MIN Diagnoses ST elevation (STEMI) myocardial infarction I21.3 CAD (coronary artery disease) I25.10 Rash R21 Hyperlipidemia E78.5 Hypertension I10
--- NOTE | 2023-08-16 16:11 | Cardiology Progress Note ---
Date of Service August 16, 2023 Assessment & Plan (1) ST elevation (STEMI) myocardial infarction: Plan: Secondary to occlusion of SVG to OM. Unsuccessful attempt at PCI. Fortunately, his EF did not significantly drop and he has only a small area of wall motion a bnormality. He is at risk for mechanical complication of myocardial infarction. That risk will have significantly dropped by 48 hours post DC. For now he will stay on the aspirin and Brilinta but at time of discharge we can probably stop the Brilinta as there is no stent to keep open any longer. (2) Rash: Plan: Suspect this is secondary to the Plavix. I would not discharge him on Plavix. In addition to the rash he thrombosed to the stent went on Plavix which may indicate he is a nonresponder to Plavix. (3) CAD (coronary artery disease): Plan: Severe multivessel with prior CABG (2010) including FUENTES to LAD and SVG to OM 3. 1 of 2 grafts remain patent. No longer with angina post DC. I would keep him on aspirin 81 mg daily, Toprol-XL 50 mg daily, Crestor 10 mg daily which will be titrated to achieve target LDL reduction, and isosorbide mononitrate 30 mg daily. (4) Hyperlipidemia: Plan: High risk. High intensity statin therapy ongoing with Crestor 10 mg daily. Titrate to achieve target LDL reduction. (5) Hypertension: Plan: Blood pressure is now on the lower side. Could consider discontinuation of isosorbide mononitrate if he has symptoms with his drops in blood pressure. Plan I would keep him in the ICU for another 24 hours. Then, stepdown unit to [facility] 48 to 72 hours therapy post DC. DC likely completed last evening. Patient should follow-up within 1 to [address] Downey in the cardiology office. Admission and Anticipated Discharge Date Admission Date: August 14, 2023 Subjective Patient feeling better today. States he stopped having chest pain/indigestion last night. No shortness of breath. No pain at the access site. No other complaints at this time. I explained to him the findings on coronary angio graphy and that he had stent thrombosis. I also notified him that his vein graft was in bad shape to begin with and it is not surprising that he has had problems with it since it is 13 years since his bypass surgery. Fortunately, the myocardium supplied by the graft is relatively small. He seems to understand this. He also states that the itching and rash have significantly improved. He had a previous catheterization years ago and did not have any rashes. He only developed a rash after taking Plavix so I suspect this may be the etiology. He thinks that is likely true. Review of Systems Review of Systems: Negative except as per HPI Physical Exam Constitutional: WD/WN, vitals as above Eyes: Extraocular muscles intact. Sclera are anicteric. ENMT: Oral mucosa is pink moist and intact Neck: No JVD or bruits Respiratory: Clear to auscultation bilaterally. No wheezing, rhonchi, or rales. Good air movement. Cardiovascular: Regular rate and rhythm. S4 gallop. No rubs or murmurs appreciated. No edema. Musculoskeletal: no cyanosis or clubbing, extremities motor strength 5/5 (Femoral access with small ecchymosis. No mass or bruits. Good distal perf) Skin: Prior erythematous papular rash is not resolved but significantly improved. Erythema nearly resolved. Neurologic: Cognition is intact. Speech is fluent. No focal deficits. No tremor. Psychiatric: A+Ox3, euthymic affect Results & Data Vital Signs (Past 12 Hours) Vital Signs Temp Pulse Resp BP BP Pulse Ox O2 Del Method 08/16/23 09:43 36.8 C 16 98/60 L 98 Room Air 08/16/23 08:00 79 08/16/23 05:45 71 14 91 08/16/23 05:30 82/56 L 08/16/23 05:30 77 13 92 08/16/23 05:15 75 13 89 L 08/16/23 05:00 95/57 L 08/16/23 05:00 76 13 91 08/16/23 04:45 78 18 89 L 08/16/23 04:30 81 15 91 08/16/23 04:30 100/54 L 08/16/23 04:15 72 15 93 PG Care Time/CCT Total # of Minutes Spent Total Time Spent with Patient: Total time spent is greater than 50% in coordination of care (as documented) at patient's floor/unit and/or counseling patient: Coding Level of Care Code 33590 SUB INP/OBS CARE 2/35MIN Diagnoses ST elevation (STEMI) myocardial infarction I21.3 Rash R21 CAD (coronary artery disease) I25.10 Hyperlipidemia E78.5 Hypertension I10 Time Spent (min) 35
[2023-08-16] MEDS: ALUMINUM/MAGNESIUM SUSP 30 ML UDC PO PRN (16:53)
[2023-08-16] MEDS: PANTOprazole 40 MG TAB PO SCH (20:11)
[2023-08-17 04:13] LABS: Basophils # (auto) 0.02 K/uL (0.00-0.20); Basophils % (auto) 0.1 %; Eosinophils # (auto) 0.16 K/uL (0.00-0.50); Eosinophils % (auto) 1.1 %; Hematocrit (blood only) 44.7 % (42.0-52.0); Hemoglobin 15.4 g/dl (14.0-18.0); Immature Granulocytes # (auto) 0.08 K/uL (0.01-0.20); Immature Granulocytes % (auto) 0.5 %; Lymphocytes # (auto) 1.39 K/uL (1.20-3.40); Lymphocytes % (auto) 9.4 %; Mean Corpuscular Hemoglobin 33.5 pg (25.0-34.0); Mean Corpuscular Hgb Conc 34.5 g/dL (32.0-36.0); Mean Corpuscular Volume 97.2 fL (80.0-100.0); Mean Platelet Volume 9.9 fL (9.4-12.4); Monocytes # (auto) 1.75 K/uL (0.11-0.59); Monocytes % (auto) 11.8 %; Neutrophils # (auto) 11.45 K/uL (1.40-6.50); Neutrophils % (auto) 77.1 %; Platelet Count 140 K/uL (130-400); RDW Coefficient of Variation 12.2 % (11.5-14.5); RDW Standard Deviation 43.6 fL (36.4-46.3); White Blood Count 14.85 K/ul (4.8-10.8)
[2023-08-17 04:32] LABS: BUN Creatinine Ratio 16.8 (10-20); Calcium 9.5 mg/dl (8.6-10.3); Creatinine Clr Calc Pharmacy 53.8 ml/min; Est GFR (African American) 59.7 ml/min; Est GFR (Non-African American) 51.5 ml/min; Magnesium 2.2 mg/dl (1.7-2.4); Phosphorus 1.7 mg/dl (2.5-4.9); Potassium 4.6 mmol/L (3.5-5.1)
[2023-08-17 04:41] LABS: Troponin I High Sensitivity 20645.3 pg/ml (0-20)
--- NOTE | 2023-08-17 09:25 | Cardiology Progress Note ---
Date of Service August 17, 2023 Assessment & Plan (1) CAD (coronary artery disease): Plan: Post stent/vein graft thrombosis of SVG to OM3. Patent FUENTES to LAD. RCA without disease. AV groove circumflex patent. 2. Preserved LV function--posterior wall motion abnormality 3. Hypertension 4. Dyslipidemia 5. Rash - contact vs drug Now more than 48 hrs out from medically managed [place]. Chest pain free, electrically stable. BPs borderline. No signs of heart failure or mechanical complications. No access site complications. From a cardiac standpoint OK with discharge today. -- OK with antiplatelet monotherapy with aspirin alone. (Graft/stent now occluded, no other high risk obstructive disease on cath. Ticagrelor previously not an option due to cost. Clopidogrel potentially caused drug rash?). -- Continue home statin, Toprol XL -- Can stop Imdur -- Will consider MUKESH/ARB as an outpatient as BP allows Follow-up with cardiology, Dr. Naylor in 1-2 weeks. We discussed cardiac rehab. Admission and Anticipated Discharge Date Admission Date: August 14, 2023 Subjective Feeling well this morning. No additional chest pain. Prior rash resolving. Telemetry reviewed -- no events. Review of Systems Review of Systems: All systems reviewed & are unremarkable except as noted in HPI & below Physical Exam Physical Exam: General: Comfortable, up walking around room HEENT: Sclerae anicteric Lungs: Clear to auscultation bilaterally Cardiac: Regular rate and rhythm, No murmurs Vascular: Left radial artery access site pulse intact. RT SALES AND TRAINING SPECIALIST access site. No hematoma, minimal ecchymosis. Abdomen: Soft, nontender Extremities: Well perfused, no peripheral edema Neuro: Nonfocal Skin: resolving rash along inner thighs Psych: Alert orient x3, normal affect and mood Results & Data Vital Signs (Past 12 Hours) Vital Signs Temp Pulse Pulse Resp BP Pulse Ox O2 Del Method 08/17/23 07:44 99.0 F 70 13 113/64 93 Room Air 08/17/23 03:00 98.6 F 81 17 111/66 95 Room Air 08/17/23 00:45 71 08/16/23 23:15 97.7 F 81 17 105/63 94 Room Air PG Care Time/CCT Total # of Minutes Spent Total Time Spent with Patient: Total time spent is greater than 50% in coordination of care (as documented) at patient's floor/unit and/or counseling patient: Coding Level of Care Code 81579 SUB INP/OBS CARE 50MIN Diagnoses CAD (coronary artery disease) I25.10
[2023-08-17] MEDS: predniSONE 20 MG TAB PO SCH (09:31)
--- NOTE | 2023-08-17 18:49 | Discharge Summary ---
Date of Service August 17, 2023 Admission HPI Per Admitting Provider 73yo M recently admitted with NSTEMI s/p cath OM3 stent and d/c 08/08 presented for sudden onset of severe chest pain. Patient reported earlier today he developed severe pain in his left chest which radiated to his left arm, felt a heavy pressure and pain in his chest up to a 12/10 only slightly improved to 10/10 after nitro, feels warm and sweaty but not feverish and feels slightly anxious/short of breath. Continues to have chest pain at time of bedside assessment. To the Sulfonator Operator emergently. Patient also has a diffuse expanding rash which started at his IV sites and Coban sites and is with a prior history of latex allergy. Patient was started on topical hydrocortisone, prednisone 20 mg twice daily, and hydroxyzine 3 times daily but this rash has spread diffusely including to his back. Painful and sometimes itchy. Did review with allergy, patient does have a latex allergy and this started at his adhesive sites but could also represent a Plavix allergy as this was started at about the same time patient was transition to this from Brilinta. Agree with continuing steroids, hydroxyzine, and topical steroids at this time. If possible reasonable to pursue alternative antiplatelet to Plavix such as Brilinta as Plavix allergy/contribution cannot be ruled out as it started at relatively the same time Principal Diagnosis STEMI Discharge Exam PHYSICAL EXAMINATION Last 24h vital signs reviewed, see documentation in flowsheet General: comfortable appearing, no distress, sitting bed HEENT: Normocephalic, atraumatic, pupils round and equal, sclerae anicteric, no conjunctival injection, moist mucus membranes Lungs: Normal respiratory effort. Clear to auscultation bilaterally. No RRW Heart: Regular rate and rhythm, no murmurs. No JVD Abdomen: Soft, nondistended. Bowel sounds present. Extremities: Warm, dry, well-perfused. No extremity edema. Skin: rash significantly improved - face/neck no longer red, no new lesions on arms/legs or trunk and substantial fading and flattening - looks a little better than yesterday Neuro: Alert and oriented x 4, face symmetric, moves 4 extremities well Psych: Normal affect and behavior Discharge Data Allergies Allergy/AdvReac Type Severity Reaction Status Date / Time adhesive Allergy Intermediate rash Verified 08/14/23 07:27 clopidogrel Allergy Intermediate Rash Verified 08/17/23 12:04 latex Allergy Intermediate RASH Verified 08/14/23 07:27 Consultations 08/14/23 17:15 ED Decision to Admit Stat 08/14/23 19:05 Consult Yarder Engineer Routine 08/16/23 16:27 Consult Cardiology Routine Procedures Performed Operation Date: 08/14/23 17:05 Actual Procedures s Ultrasound Vascular Access - Oscar Harvey MD, PhD p Cath, Coronaries ONLY (no LV) - Oscar Harvey MD, PhD Ordered Studies 08/14/23 17:05 CL Cath Imgs for PACS use only Stat Chest X-Ray 08/14/23 15:49 XR chest 1V portable CLINICAL HISTORY: Chest pain, nonspecific COMPARISON STUDY: No previous studies for comparison. FINDINGS: No pneumothorax or pleural effusion is present. Lung volumes are mildly diminished. Mild interstitial prominence is noted. There are median sternotomy wires and clips from bypass grafting. Cardiomediastinal silhouette is stable. No consolidation is present. IMPRESSION: Interstitial prominence. This may be due to a hypoventilatory study. Pulmonary vascular congestion with mild pulmonary edema could appear similar. ACT 112: Negative or not required by law. Electronically signed by: Brandon Murillo M.D. 08/14/2023 4:05 PM 08/17/23 03:58 08/17/23 03:58 Hospital Course (1) ST elevation (STEMI) myocardial infarction: 73 y/o man with CAD and CABGx2 in 2010, recent NSTEMI 08/08 with JEANNINE of SVG to OM3 discharged on DAPT with ASA, Plavix as well as rosuvastatin and metoprolol. Presented with severe chest pain and dynamic EKG changes which worsened in the ED eventually developing VASU in V5 and V6 and taken emergently to the laborer beam house. Thrombosis of the JEANNINE to SVG was found and aspiration thrombectomy performed with significant amount of clots removed, however, unable to pass guidewire past stent despite multiple attempts and blood flow was not restored to the stent. Loaded on Brilinta. Chest pain following procedure treated with nitroglycerin drip and morphine. -treated with heparin drip post procedure, chest pain resolved by AM 4/4 -Echo - nl EF, distal posterolateral and apical hypokinesis to akinesis c/w OM3 territory [place] otherwise unchanged -trop peaked at 45K -discussed with Dr. Downey - recommended discharge on ASA. They were not able to restore flow through stent to SVG so no benefit of Brilinta right now. Should not be on plavix again since likely caused the rash and was ineffective, may have plavix resistance -metoprolol succinate 50 mg, rosuvastatin, imdur 15 mg for discharge. Imdur was added for chest pain and may be able to be stopped on follow up -follow up in cardiology clinic, cardiac rehab referral made A1c remains mildly elevated at 5.7. Lifestyle measures, follow up with primary care (2) CAD (coronary artery disease): see above (3) Rash: Diffuse pruritic maculopapular rash, history of latex/adhesive allergy Denies new topical/skin exposures though started with adhesive from prior admission. Allergies coincides with both potential latex exposure, in addition to Plavix his only new medication Diffuse pruritic, blanching tender papular rash. Does not appear vasculitic and no thrombocytopenia or renal failure to suggest TTP Mild leukocytosis without left shift, no eosinophilia is noted likely was drug rash from plavix 08/15 substantial improvement in rash Continue prednisone - decrease to 20 mg daily x 5-7 more days (4) Hyperlipidemia: Hyperlipidemia Continue rosuvastatin. Recent LDL was 36 (5) Hypertension: Hypertension Continue beta-sofya Plan CKD stage 2 - Cr stable IgG lambda MGUS UPEP negative for M spike, no anemia/hypercalcemia/renal insufficiency Total Time Total Time Spent Total Time Spent (In Minutes): I personally spent: 35 minutes today on clinical care activities including: reviewing chart notes and vital signs reviewing labs discussion with independent crop consultant(s) discussion with career technical education instructor examining and counseling the patient writing orders documentation Discharge Plan Discharge Items Patient Disposition: Home - Self-Care Reason For Visit: STEMI Discharge Diagnosis: STEMI Activity: Per Instructions section Non-emergency contact: Primary Care Provider and Utilization Management Um Nurse Call non-emergency contact if: you have any medication questions and your symptoms worsen Follow-up/Referrals: Chidi Naylor MD [Physician] - 08/29/23 1:30 pm (Scheduled with Alesia Jon PA-C) Zeenat Murillo MD [Primary Care Provider] - 08/23/23 2:00 pm (Scheculed with Suzanne Rowe PA-C) Diet: Heart Healthy Addtl Attending Provider Instructions: You were treated for STEMI (heart attack). This was caused by your recent stent clotting up. Dr. Harvey sucked out a lot of clot, but unfortunately was not able to open the vessel. This vessel was one of your old vein grafts and fortunately doesn't feed a very big area of the heart muscle. Your Echo showed expected heart muscle damage in that area, but the overall heart squeeze is still good. -the room service supervisor recommended staying on aspirin alone at this time and stopping plavix. Dr. Downey and Dr. Harvey said there wasn't any benefit to continuing Brilinta right now -you should not be on plavix in the future because it didn't work for you and may have caused the rash I gave you a prescription for imdur (isosorbide) - this is an anti-anginal medication that may prevent chest pain. I reduced the dose to a half tab - usually this medicine comes in a scored tablet that can be cut in half with a pill cutter. If you are getting lightheaded or low blood pressure on this, its ok to try stopping it. If you're tolerating it well, you can continue it and discuss whether to stop it at your next cardiology appointment Please schedule follow up with Dr. Naylor - it would be good to get in prior to your next appt which is 09/30, if possible. Dr. Downey should be helping arrange that, but call if you don't hear from the cardiology clinic soon Take it easy with your activity level Cardiac rehab will help you safely increase your exercise For the rash -take prednisone 20 mg ONCE a day in the morning for 5-7 more days. Its ok to stop it early if the rash is clearly resolving Pending Studies at Discharge: No Stand-Alone Forms: [email or web address], Smoking Cessation Medications and DC Order Prescriptions: New isosorbide mononitrate 30 mg Tablet Extended Release 24 Hr 15 mg PO QAM Qty: 14 0RF Continued metoprolol succinate 50 mg tablet extended release 24 hr 50 mg PO DAILY Qty: 90 3RF omeprazole 20 mg capsule,delayed release(DR/EC) 20 mg PO DAILY Qty: 90 3RF rosuvastatin 10 mg tablet 10 mg PO DAILY Qty: 90 3RF nitroglycerin 0.4 mg tablet, sublingual 0.4 mg SL Q5M MDD 3 PRN (Reason: chest pain) Qty: 25 2RF meloxicam 7.5 mg tablet 7.5 mg PO DAILY PRN (Reason: pain) Qty: 90 3RF Hold Instructions: Resume on 09/09/23. hydroxyzine HCl 25 mg tablet 25 mg PO TID PRN (Reason: itching) Qty: 30 1RF multivitamin Tablet 1 tab PO DAILY tyzbsdrjnth-xsbmysvsz-ief C-Mn Capsule 1 cap PO DAILY aspirin 81 mg Tablet,Delayed Release (Dr/Ec) 81 mg PO DAILY Doland-3 350 mg-235 mg- 90 mg-597 mg Capsule,Delayed Release(Dr/Ec) 1 cap PO DAILY Changed prednisone 20 mg tablet 20 mg PO DAILY Qty: 14 0RF Rx Instructions: take for 5-7 more days for rash Discontinued clopidogrel [Plavix] 75 mg tablet 75 mg PO DAILY Qty: 30 5RF Discharge Orders: Discharge Order (Routine); Ordered 08/17/23 Ordered By: Pina Foster/Other Patient Handouts: Hypertension and Kidney Disease, CAD Admission Data Admit Date/Time: 08/14/23 18:15 Attending Provider: Pina Parham Admit Provider: Fredy Lane Primary Care Provider: Zeenat Murillo Other Providers: Fredy Lane; Wero Estrada; Oscar Harvey Other Interventions: Discharge Summary Assessment (RN) Last Done: 08/17/23 13:03 Coding Level of Care Code 21893 INP/OBS DISCH >[address] elevation (STEMI) myocardial infarction I21.3 CAD (coronary artery disease) I25.10 Rash R21 Hyperlipidemia E78.5 Hypertension I10
--- NOTE | 2023-08-17 19:10 | Electrocardiogram Report ---
Test Reason : Blood Pressure : / mmHG Vent. Rate : 081 BPM Atrial Rate : 081 BPM P-R Int : 178 ms QRS Dur : 100 ms QT Int : 370 ms P-R-T Axes : 052 -24 051 degrees QTc Int : 429 ms Normal sinus rhythm Nonspecific ST abnormality Consider acute lateral VT Abnormal ECG When compared with ECG of 08-AUG-2023 14:10, ST now depressed in Anterior leads ST elevation now present in lateral precordial leads Confirmed by Kong Vang ([id number]) on 08/17/2023 7:10:18 PM Referred By: Confirmed By:Kong Vang
--- NOTE | 2023-08-17 19:12 | Electrocardiogram Report ---
Test Reason : Blood Pressure : / mmHG Vent. Rate : 087 BPM Atrial Rate : 087 BPM P-R Int : 172 ms QRS Dur : 106 ms QT Int : 384 ms P-R-T Axes : 056 -31 041 degrees QTc Int : 462 ms Sinus rhythm with frequent Premature ventricular complexes Possible Left atrial enlargement Left axis deviation ST elevation consider lateral injury or acute infarct ACUTE MD / STEMI Abnormal ECG When compared with ECG of 14-AUG-2023 15:53, (unconfirmed) Premature ventricular complexes are now Present Confirmed by Kong Vang ([id number]) on 08/17/2023 7:12:07 PM Referred By: REFERRED SELF Confirmed By:Kong Vang
--- NOTE | 2023-08-17 19:15 | Electrocardiogram Report ---
Test Reason : Blood Pressure : / mmHG Vent. Rate : 085 BPM Atrial Rate : 085 BPM P-R Int : 180 ms QRS Dur : 108 ms QT Int : 376 ms P-R-T Axes : 051 -35 046 degrees QTc Int : 447 ms Sinus rhythm with occasional , and consecutive Premature ventricular complexes Possible Left atrial enlargement Left axis deviation Incomplete right bundle branch block ST elevation consider lateral injury or acute infarct ACUTE NV / STEMI Abnormal ECG When compared with ECG of 14-AUG-2023 16:23, (unconfirmed) No significant change was found Confirmed by Kong Vang ([id number]) on 08/17/2023 7:14:44 PM Referred By: REFERRED SELF Confirmed By:Kong Vang
--- NOTE | 2023-08-17 19:24 | Electrocardiogram Report ---
Test Reason : Blood Pressure : / mmHG Vent. Rate : 084 BPM Atrial Rate : 084 BPM P-R Int : 182 ms QRS Dur : 100 ms QT Int : 390 ms P-R-T Axes : 059 -53 068 degrees QTc Int : 460 ms Poor data quality, interpretation may be adversely affected Normal sinus rhythm Possible Left atrial enlargement Incomplete right bundle branch block Left anterior fascicular block Abnormal ECG When compared with ECG of 14-AUG-2023 17:08, (unconfirmed) Premature ventricular complexes are no longer Present ST no longer elevated in Lateral leads Confirmed by Kong Vang ([id number]) on 08/17/2023 7:24:28 PM Referred By: REFERRED SELF Confirmed By:Kong Vang
--- NOTE | 2023-08-18 00:29 | Electrocardiogram Report ---
Test Reason : Blood Pressure : / mmHG Vent. Rate : 087 BPM Atrial Rate : 087 BPM P-R Int : 182 ms QRS Dur : 098 ms QT Int : 376 ms P-R-T Axes : 052 -52 072 degrees QTc Int : 452 ms Sinus rhythm Left anterior fascicular block Abnormal ECG When compared with ECG of 14-AUG-2023 21:36, (unconfirmed) Incomplete right bundle branch block is no longer Present Confirmed by Kong Vang ([id number]) on 08/18/2023 12:29:12 AM Referred By: REFERRED SELF Confirmed By:Kong Vang
== END 2023-08-17 13:48 | disposition home or self-care (01) | DRG 250 ==
LOC: ED 15:19 → 1E 17:22 → OR 17:22 → SUATTDRO 18:15 → 1E 18:15 → 2S 08-17 08:10
PROC: CLB.CCO (2023-08-14 17:05)